=== PATIENT | female | born 1995 | race Caucasian/White ===

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

== ENCOUNTER 2017-12-01 15:57 | Emergency (ER) | payer MEDICAID ==
[~2017-12-01] VITALS: Ht 157.5 cm; Wt 54.4 kg
[~2017-12-01 15:57] MED LIST: CITA10TA7 PO; CLON0.5T PO; FAMO-119 PO; IRON18TA PO; NITR-65 PO; ONDA4TAB8 PO
[2017-12-01] MEDS ORDERED: ONDANSETRON 4 MG (ZOFRAN) ORAL DISSOLVE TAB SL STA (16:26)
[2017-12-01 16:31] LABS: BILIRUBIN,URINE NEGATIVE (NEGATIVE); CLARITY,URINE CLEAR; COLOR,URINE AMBER; GLUCOSE, URINE (UA) NEGATIVE (NEGATIVE); KETONES,URINE 4+ (NEGATIVE); LEUKOCYTE ESTERASE ,URINE 1+ (NEGATIVE); NITRITE,URINE NEGATIVE (NEGATIVE); PH,URINE 5 (5-9); PROTEIN,URINE NEGATIVE (NEGATIVE); UROBILINOGEN,URINE NORMAL (NORMAL)
[2017-12-01] MEDS ORDERED: ACETAMINOPHEN 325 MG TABLET/CAPLET (TYLENOL) PO STA (16:47)
[2017-12-01 17:01] LABS: BACTERIA,URINE TRACE /HPF; WBC,URINE RARE /HPF
[2017-12-01] MEDS ORDERED: NS IV 1000 ML 1,000 ML IV ONE (17:22)
--- NOTE | 2017-12-01 17:27 | ED GI ---
General Chief Complaint: Abdominal/GI Problems Stated Complaint: VOMITING Nursing Triage Note: AMB TO ROOM C/O LOW BACK PAIN AND WITH HEADACE AND NOT NOT FEELING WELL. VOMITED X1 AT 9A TODAY DRINKING SPRIT ON ADMIT. Sepsis Screen: No Definite Risk History of Present Illness Date Seen by Provider: Dec 01, 2017 Time Seen by Provider: 16:00 Initial Comments 22-year-old female presents for vomiting and nausea. Patient denies diarrhea. She vomited approximately 0900 this morning. She reports that she's been having small sips of water and Sprite, no solid food intake. She has generalized abdominal pain. Timing/Duration: 4-6 Hours Severity/Quality: Mild Location: Generalized Abdomen Radiation: Flank (bilaterally) Activities at Onset: None Modifying Factors: Improves With Lying down, Improves With Resting Associated Symptoms: Back Pain, Nausea/Vomiting, Weakness Allergies and Home Medications Allergies Coded Allergies: No Known Drug Allergies (Unverified , 12/14/16) Home Medications Nitrofurantoin Macrocrystal 100 Mg Capsule, 100 MG PO Q6H, #20 Ref 0 Prescribed by: SHIKHA JONAS on 12/01/171813 Ondansetron 8 Mg Tab.rapdis, 8 MG PO Q6H, #4 Ref 0 Prescribed by: SHIKHA JONAS on 12/01/174 Review of Systems Constitutional: no symptoms reported, see HPI Gastrointestinal: See HPI, Abdominal Pain, Denies Constipated, Denies Diarrhea , Nausea, Poor Appetite, Vomiting Past Psdpugm-Lnusbm-Mmgbhs Hx Patient Social History Alcohol Use: Denies Use Recreational Drug Use: No Smoking Status: Current Everyday Smoker Type Used: Cigarettes 2nd Hand Smoke Exposure: Yes Recent Foreign Travel: No Contact w/Someone Who Travel: No Recent Infectious Disease Expo: No Recent Hopitalizations: No Immunizations Up To Date Tetanus Booster (TDap): Unknown Seasonal Allergies Seasonal Allergies: No Surgeries History of Surgeries: Yes (D&C) Respiratory History of Respiratory Disorde: No Cardiovascular History of Cardiac Disorders: No Neurological History of Neurological Disord: No Reproductive System 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 Gastrointestinal History of Gastrointestinal Di: No Musculoskeletal History of Musculoskeletal Dis: No Endocrine History of Endocrine Disorders: No Cancer History of Cancer: No Psychosocial History of Psychiatric Problem: Yes Behavioral Health Disorders: Anxiety, Depression Integumentary History of Skin or Integumenta: No Blood Transfusions History of Blood Disorders: Yes (ANEMIA) Reviewed Nursing Assessment Reviewed/Agree w Nursing PMH: Yes Physical Exam Vital Signs VS - Last 72 Hours, by Label 12/01/17 12/01/17 16:10 19:04 Temp 100.2 99.0 Pulse 118 86 Resp 18 18 B/P (MAP) 124/74 (91) Pulse Ox 97 98 O2 Delivery Room Air Capillary Refill : Less Than 3 Seconds General Appearance: WD/WN, no apparent distress HEENT: PERRL/EOMI, normal ENT inspection, TMs normal, pharynx normal, other ( oral mucosa pink and moist) Neck: non-tender, full range of motion, supple, normal inspection Respiratory: chest non-tender, lungs clear, normal breath sounds Cardiovascular: normal peripheral pulses, regular rate, rhythm Gastrointestinal: normal bowel sounds, No distended, No guarding, No rebound, tenderness (generalized, all 4 quadrants), No hepatomegaly Back: normal inspection, no vertebral tenderness, CVA tenderness (R), CVA tenderness (L) Neurologic/Psychiatric: no motor/sensory deficits, alert, normal mood/affect, oriented x 3 Skin: normal color, warm/dry Lymphatic: no adenopathy Progress/Results/Core Measures Results/Orders Lab Results Laboratory Tests Test 12/01/17 16:16 Range/Units Urine Color SKYLER H Urine Clarity CLEAR Urine pH 5 5-9 Urine Specific [place] 1.020 1.016-1.022 Urine Protein NEGATIVE NEGATIVE Urine Glucose (UA) NEGATIVE NEGATIVE Urine Ketones 4+ H NEGATIVE Urine Nitrite NEGATIVE NEGATIVE Urine Bilirubin NEGATIVE NEGATIVE Urine Urobilinogen NORMAL NORMAL MG/DL Urine Leukocyte Esterase 1+ H NEGATIVE Urine RBC (Auto) 4+ H NEGATIVE Urine RBC 2-5 H /HPF Urine WBC RARE /HPF Urine Squamous Epithelial Cells 2-5 /HPF Urine Crystals NONE /LPF Urine Bacteria TRACE /HPF Urine Casts NONE /LPF Urine Mucus LARGE H /LPF Urine Culture Indicated NO Micro Results Microbiology 12/01/17 Influenza Types A,B Antigen (DIMITRI) - Final, Complete My Orders Orders - SHIKHA JONAS Ua Culture If Indicated (12/01/17 16:06) Urine Bedside (12/01/17 16:06) Ondansetron Oral Dissolve Tab (Zofran (12/01/17 16:26) Influenza A And B Antigens (1/24/18 16:26) Acetaminophen Tablet/Caplet (Tylenol T (12/01/17 16:47) Saline Lock/Iv-Start (12/01/17 17:22) Ns Iv 1000 Ml (Sodium Chloride 0.9%) (12/01/17 17:22) Medications Given in ED Current Medications Medications Dose Ordered Sig/Ishmael Route Start Time Stop Time Status Last Admin Dose Admin Sodium Chloride 1,000 ml @ 0 mls/hr Q0M ONCE IV 12/01/17 17:22 12/01/17 17:23 DC 12/01/17 17:48 1,000 MLS/HR Vital Signs/I&O Vital Sign - Last 12Hours 12/01/17 12/01/17 16:10 19:04 Temp 100.2 99.0 Pulse 118 86 Resp 18 18 B/P (MAP) 124/74 (91) Pulse Ox 97 98 O2 Delivery Room Air Blood Pressure Mean: 91 Point of Care Testing Urine -Bedside: Negative Progress Note : Time: 16:00 Progress Note Initial evaluation completed, will check UA and influenza screen. Zofran 4 mg orally for nausea. 1640 patient reports nausea is improved, will give Tylenol 650 mg by mouth for headache. Awaiting lab results. 1700 patient resting with no complaints, taking sips of Pedialyte. UA shows 4+ ketones, recommended 1 L normal saline IV. 1900 discharge planning reviewed, return precautions and instructions. All questions answered. Departure Impression Impression: Primary Impression: Pain in the abdomen Qualified Codes: R10.84 - Generalized abdominal pain Additional Impression: Nausea and vomiting Qualified Codes: R11.2 - Nausea with vomiting, unspecified Disposition: HOME, SELF-CARE Condition: Improved Departure-Patient Inst. Decision time for Depature: 18:30 Referrals: NO,LOCAL PHYSICIAN (PCP) Primary Care Physician Patient Instructions: Nausea and Vomiting, Adult (DC), Urinary Tract Infection , Adult (DC) Add. Discharge Instructions: Clear liquid diet for the next 4-6 hours. If tolerating that may eat bland food for the next 6-8 hours. Progress activity as tolerated. Use Zofran for nausea and vomiting as needed. Follow-up with your primary care physician if symptoms are not improving. Return to emergency department for increased abdominal pain, nausea and vomiting not relieved by the Zofran, temperature greater than 101 not relieved by Tylenol or ibuprofen, or new problems. All discharge instructions reviewed with patient and/or family. Voiced understanding. Scripts Nitrofurantoin Macrocrystal (Nitrofurantoin) 100 Mg Capsule 100 MG PO Q6H, #20 CAP 0 Refills Prov: SHIKHA JONAS 12/01/17 Ondansetron (Zofran Odt) 8 Mg Tab.rapdis 8 MG PO Q6H, #4 TAB 0 Refills Prov: SHIKHA JONAS 12/01/17 SHIKHA JONAS Dec 01, 2017 17:27
[2017-12-01] MEDS ORDERED: ONDA8TAB9 PO (18:14)
[2017-12-01] MEDS ORDERED: NITR100C PO (18:14)
[2017-12-01 19:04] VITALS: BP 116/56
== END 2017-12-01 19:04 | disposition home or self-care (01) ==
LOC: EDUNIT# 15:57 → ER 16:00
DX: R10.84 Generalized abdominal pain (principal); R11.2 Nausea with vomiting, unspecified; F41.9 Anxiety disorder, unspecified; F32.9 Major depressive disorder, single episode, unspecified; F17.210 Nicotine dependence, cigarettes, uncomplicated; Z97.5 Presence of (intrauterine) contraceptive device
CPT/HCPCS: 81000; 84703; 87804; 96360

== ENCOUNTER 2019-02-22 08:29 | Emergency (ER) | payer MEDICAID ==
[~2019-02-22] VITALS: Ht 157.5 cm; Wt 56.7 kg
[~2019-02-22 08:29] MED LIST changes: +NITR100C PO; +ONDA8TAB9 PO
--- NOTE | 2019-02-22 08:49 | ED GU-Female ---
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 COMPLAINS OF ABD PAIN AND LOWER ABD CRAMPING FOR TWO DAYS. STATES SHE HAS HAD A POSITIVE HOME PREG TEST BUT HAS NOT SEEN A DR YET. Nursing Sepsis Screen: No Definite Risk Source: patient, family Exam Limitations: no limitations History of Present Illness Date Seen by Provider: Feb 22, 2019 Time Seen by Provider: 08:50 23 y/o with 2 week history of intermittent nausea and vomiting and 2 day history of abdominal cramping presents for evaluation after + home test. Last she had "bad morning sickness" and had to be hospitalized. LMP 01/09/19- 6W 2/7D. Other pregnancies with without complication, no other complications during course (aside from afore mentioned morning sickness). She has not had any bleeding or abnormal discharge. No hematuria or fevers. No history of STI or ectopic . Had an IUD until about 6 months ago, when it was removed. Allergies and Home Medications Allergies Coded Allergies: No Known Drug Allergies (Unverified , 12/14/16) Home Medications Ondansetron HCl 4 Mg Tab, 4 MG PO Q6H PRN for NAUSEA/VOMITING-1ST LINE Prescribed by: DENISE PHOENIX on 02/22/19 1041 Patient Home Medication List Home Medication List Reviewed: Yes Review of Systems Review of Systems Constitutional: chills; No fever; weakness EENTM: No blurred vision, No double vision Respiratory: No cough, No short of breath Cardiovascular: No chest pain, No edema, No palpitations Gastrointestinal: see HPI; No diarrhea; nausea, vomiting Genitourinary: see HPI; denies burning, denies discharge, denies dysuria, denies flank pain, denies hematuria, denies pain Musculoskeletal: No back pain, No joint pain, No muscle pain Skin: No lesions, No rash Psychiatric/Neurological: Denies Anxiety, Denies Numbness Past Kolfqsu-Eulwyd-Kgblvr Hx Past Med/Social Hx: Reviewed Nursing Past Med/Soc Hx Patient Social History Type Used: Cigarettes 2nd Hand Smoke Exposure: Yes Recent Foreign Travel: No Contact w/Someone Who Travel: No Recent Infectious Disease Expo: No Recent Hopitalizations: No Immunizations Up To Date Tetanus Booster (TDap): Unknown Seasonal Allergies Seasonal Allergies: No Past Medical History Surgeries: Yes (D&C) Respiratory: No Cardiac: No Neurological: No 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 oz. 56.032915bk; 23.77 BMI Method:Stated General Appearance: WD/WN, no apparent distress HEENT: PERRL/EOMI, normal ENT inspection, TMs normal, pharynx normal, other ( moist MM) Neck: non-tender, supple, normal inspection Cardiovascular: regular rate, rhythm, no edema, no gallop, no JVD, no murmur Respiratory: chest non-tender, lungs clear, normal breath sounds, no respiratory distress, no accessory muscle use Gastrointestinal: normal bowel sounds, non tender, soft, no organomegaly, no pulsatile mass Back: normal inspection, no CVA tenderness, no vertebral tenderness Extremities: normal range of motion, non-tender, normal inspection, no pedal edema, no calf tenderness Neurologic/Psychiatric: no motor/sensory deficits, alert, normal mood/affect, oriented x 3 Skin: normal color, warm/dry Progress/Results/Core Measures Suspected Sepsis Recent Fever Within 48 Hours: No Infection Criteria Present: None New/Unexplained Altered Menta: No Sepsis Screen: No Definite Risk SIRS Temperature:96.9 Pulse: 76 Respiratory Rate: 16 Laboratory Tests 02/22/19 09:10: White Blood Count 8.2 Blood Pressure 122 /78 Mean: 93 Laboratory Tests 02/22/19 09:10: Creatinine 0.53L, Platelet Count 217, Total Bilirubin 0.5 Results/Orders Lab Results Laboratory Tests Test 02/22/19 09:10 02/22/19 09:40 Range/Units White Blood Count 8.2 4.3-11.0 10^3/uL Red Blood Count 3.99 L 4.35-5.85 10^6/uL Hemoglobin 13.2 11.5-16.0 G/DL Hematocrit 37 35-52 % Mean Corpuscular Volume 93 80-99 FL Mean Corpuscular Hemoglobin 33 25-34 PG Mean Corpuscular Hemoglobin Concent 36 32-36 G/DL Red Cell Distribution Width 11.9 10.0-14.5 % Platelet Count 217 130-400 10^3/uL Mean Platelet Volume 9.6 7.4-10.4 FL Neutrophils (%) (Auto) 65 42-75 % Lymphocytes (%) (Auto) 27 12-44 % Monocytes (%) (Auto) 6 0-12 % Eosinophils (%) (Auto) 2 0-10 % Basophils (%) (Auto) 0 0-10 % Neutrophils # (Auto) 5.3 1.8-7.8 X 10^3 Lymphocytes # (Auto) 2.2 1.0-4.0 X 10^3 Monocytes # (Auto) 0.5 0.0-1.0 X 10^3 Eosinophils # (Auto) 0.1 0.0-0.3 10^3/uL Basophils # (Auto) 0.0 0.0-0.1 10^3/uL Sodium Level 137 135-145 MMOL/L Potassium Level 3.8 3.6-5.0 MMOL/L Chloride Level 103 98-107 MMOL/L Carbon Dioxide Level 22 21-32 MMOL/L Anion Gap 12 5-14 MMOL/L Blood Urea Nitrogen 8 7-18 MG/DL Creatinine 0.53 L 0.60-1.30 MG/DL Estimat Glomerular Filtration Rate > 60 BUN/Creatinine Ratio 15 Glucose Level 107 H 70-105 MG/DL Calcium Level 9.6 8.5-10.1 MG/DL Corrected Calcium 8.5-10.1 MG/DL Total Bilirubin 0.5 0.1-1.0 MG/DL Aspartate Amino Transf (AST/SGOT) 15 5-34 U/L Alanine Aminotransferase (ALT/SGPT) 10 0-55 U/L Alkaline Phosphatase 51 40-136 U/L Total Protein 7.8 6.4-8.2 GM/DL Albumin 4.8 H 3.2-4.5 GM/DL Lipase 13 8-78 U/L Human Chorionic Gonadotropin, Quant [id number] H <5 MIU/ML Urine Color YELLOW Urine Clarity CLEAR Urine pH 6.5 5-9 Urine Specific [place] 1.015 L 1.016-1.022 Urine Protein NEGATIVE NEGATIVE Urine Glucose (UA) 3+ H NEGATIVE Urine Ketones NEGATIVE NEGATIVE Urine Nitrite NEGATIVE NEGATIVE Urine Bilirubin NEGATIVE NEGATIVE Urine Urobilinogen 0.2 NORMAL MG/DL Urine Leukocyte Esterase NEGATIVE NEGATIVE Urine RBC (Auto) TRACE-I NEGATIVE Urine RBC 0-2 /HPF Urine WBC RARE /HPF Urine Squamous Epithelial Cells 2-5 /HPF Urine Crystals NONE /LPF Urine Bacteria NEGATIVE /HPF Urine Casts NONE /LPF Urine Mucus MODERATE H /LPF Urine Other /HPF Urine Culture Indicated NO My Orders Orders - DENISE PHOENIX MD Comprehensive Metabolic Panel (02/22/19 08:57) Lipase (02/22/19 08:57) Ua Culture If Indicated (02/22/19 08:57) Ed Iv/Invasive Line Start (02/22/19 08:57) Cbc With Automated Diff (02/22/19 08:57) Hcg,Quantitative (02/22/19 08:57) Ondansetron Injection (Zofran Injectio (02/22/19 09:00) D5 Ns 1000 Ml Iv Solution (Dextrose 5%/0 (02/22/19 09:00) Medications Given in ED Current Medications Medications Dose Ordered Sig/Ishmael Route Start Time Stop Time Status Last Admin Dose Admin Ondansetron HCl 4 mg ONCE ONCE IVP 02/22/19 09:00 02/22/19 09:01 DC 02/22/19 09:10 4 MG Vital Signs/I&O 02/22/19 08:35 Temp 96.9 Pulse 76 Resp 16 B/P (MAP) 122/78 (93) Pulse Ox 97 O2 Delivery Room Air Capillary Refill : Less Than 3 Seconds Blood Pressure Mean: 93 Progress Note #1: Time: 10:10 Progress Note nausea resolved. abdominal cramping resolved. Feeling better, will try PO challenge. Progress Note #2: Time: 10:39 Progress Note tolerated PO challenge. Feeling better and would like to go home. Departure Impression Primary Impression: Hyperemesis arising during Disposition: 01 HOME, SELF-CARE Condition: Improved Departure-Patient Inst. Decision time for Depature: 10:40 Referrals: SELFMARYJO MD (PCP/Family) Primary Care Physician Patient Instructions: Nausea and Vomiting of (DC) Scripts Ondansetron HCl (Zofran) 4 Mg Tab 4 MG PO Q6H PRN for NAUSEA/VOMITING-1ST LINE, #20 TAB 0 Refills Prov: DENISE PHOENIX MD 02/22/19 DENISE PHOENIX MD Feb 22, 2019 08:49
[2019-02-22] MEDS ORDERED: D5 NS 1000 ML IV SOLUTION 1,000 ML IV SCH (09:00)
[2019-02-22] MEDS ORDERED: ONDANSETRON 4 MG/2 ML (SDV) Z0FRAN IVP ONE (09:00)
[2019-02-22 09:19] LABS: HEMATOCRIT 37 % (35-52); HEMOGLOBIN 13.2 G/DL (11.5-16.0); MEAN CORPUSCULAR HEMOGLOBIN 33 PG (25-34); MEAN CORPUSCULAR HGB CONC 36 G/DL (32-36); MEAN CORPUSCULAR VOLUME 93 FL (80-99); WHITE BLOOD COUNT 8.2 10^3/uL (4.3-11.0)
[2019-02-22 09:20] LABS: BASOPHILS % (AUTO) 0 % (0-10); EOSINOPHILS # (AUTO) 0.1 10^3/uL (0.0-0.3); EOSINOPHILS % (AUTO) 2 % (0-10); LYMPHOCYTES # (AUTO) 2.2 X 10^3 (1.0-4.0); LYMPHOCYTES % (AUTO) 27 % (12-44); MEAN PLATELET VOLUME 9.6 FL (7.4-10.4); MONOCYTES # (AUTO) 0.5 X 10^3 (0.0-1.0); MONOCYTES % (AUTO) 6 % (0-12); NEUTROPHILS # (AUTO) 5.3 X 10^3 (1.8-7.8); NEUTROPHILS % (AUTO) 65 % (42-75); PLATELET COUNT 217 10^3/uL (130-400); RED CELL DISTRIBUTION WIDTH 11.9 % (10.0-14.5)
--- NOTE | 2019-02-22 09:40 | NUR ---
PT STATES SHE IS FEELING BETTER AFTER THE MEDICATIONS. UP AMBULATED TO BATHROOM WITHOUT DIFFICULTY.
--- NOTE | 2019-02-22 10:07 | NUR ---
IN ROOM TO SEE PT.
--- NOTE | 2019-02-22 10:10 | NUR ---
JOHN TWIST AND CRACKERS GIVEN PER DR REQUEST. PT WANTING IV OUT ET INFORMED HER I WOULD LIKE TO LEAVE IT IN UNTIL WE KNOW IF SHE IS ABLE TO KEEP THINGS DOWN FIRST. PT VERBALIZED UNDERSTANDING.
[2019-02-22 10:14] LABS: CLARITY,URINE CLEAR; COLOR,URINE YELLOW
[2019-02-22 10:15] LABS: BILIRUBIN,URINE NEGATIVE (NEGATIVE); GLUCOSE, URINE (UA) 3+ (NEGATIVE); KETONES,URINE NEGATIVE (NEGATIVE); LEUKOCYTE ESTERASE ,URINE NEGATIVE (NEGATIVE); NITRITE,URINE NEGATIVE (NEGATIVE); PH,URINE 6.5 (5-9); PROTEIN,URINE NEGATIVE (NEGATIVE); UROBILINOGEN,URINE 0.2 MG/DL (NORMAL)
[2019-02-22 10:16] LABS: BACTERIA,URINE NEGATIVE /HPF; RBC,URINE 0-2 /HPF; WBC,URINE RARE /HPF
[2019-02-22 10:18] LABS: CHLORIDE 103 MMOL/L (98-107); POTASSIUM 3.8 MMOL/L (3.6-5.0); SODIUM 137 MMOL/L (135-145)
[2019-02-22 10:19] LABS: ALANINE AMINOTRANSFERASE 10 U/L (0-55); ALBUMIN 4.8 GM/DL (3.2-4.5); ALKALINE PHOSPHATASE 51 U/L (40-136); BILIRUBIN,TOTAL 0.5 MG/DL (0.1-1.0); BUN/CREATININE RATIO 15; CALCIUM 9.6 MG/DL (8.5-10.1); CREATININE SERUM 0.53 MG/DL (0.60-1.30); GFR ESTIMATED > 60; GLUCOSE 107 MG/DL (70-105); LIPASE 13 U/L (8-78); TOTAL PROTEIN 7.8 GM/DL (6.4-8.2)
[2019-02-22 10:20] LABS: CARBON DIOXIDE 22 MMOL/L (21-32)
--- NOTE | 2019-02-22 10:31 | NUR ---
DR KAMARA PT HAS BEEN ABLE TO EAT AND DRINK WITHOUT ANY DIFFICULTY.
[2019-02-22] MEDS ORDERED: ONDN4T PO (10:41)
[2019-02-22 11:08] VITALS: BP 126/82
== END 2019-02-22 11:08 | disposition home or self-care (01) ==
LOC: EDUNIT# 08:29 → ER FS 08:31
DX: O21.9 Vomiting of pregnancy, unspecified (principal); F41.9 Anxiety disorder, unspecified; F32.9 Major depressive disorder, single episode, unspecified; O99.011 Anemia complicating pregnancy, first trimester; D64.9 Anemia, unspecified; Z3A.01 Less than 8 weeks gestation of pregnancy; Z97.5 Presence of (intrauterine) contraceptive device; Z77.22 Contact with and (suspected) exposure to environmental tobacco smoke (acute) (chronic); Z98.890 Other specified postprocedural states
CPT/HCPCS: 36415; 80053; 81000; 83690; 84702; 85025

== ENCOUNTER 2019-02-27 00:03 | Emergency (ER) | payer MEDICAID ==
[~2019-02-27] VITALS: Ht 157.5 cm; Wt 56.7 kg
[~2019-02-27 00:03] MED LIST changes: +ONDN4T PO
--- OUTSIDE RECORDS SUMMARY | 2019-02-27 00:10 | XMS REPORT | Continuity of Care Document ---
Author Organization Unknown Address Unknown Allergies There is no data. Medications There is no data. Problems There is no data. Procedures There is no data. Results Test Result Range GC/CHLAMYDIA (SWAB OR URINE)-RAPID - 02/09/19 14:04 CHLAMYDIA TRACHOMATIS RNA, TMA NOT DETECTED NOT DETECTED NEISSERIA GONORRHOEAE RNA, TMA NOT DETECTED NOT DETECTED COMMENT NRG Encounters ACCT No. Visit Date/Time Discharge Status Pt. Type Provider Facility Loc./Unit Complaint [id number] 02/09/2019 13:00:00 02/09/2019 23:59:59 CLS Outpatient SELF, MARYJO COATESNick [facility] [id number] 02/09/2019 13:00:00 Document Registration
--- NOTE | 2019-02-27 00:29 | ED GI ---
General Stated Complaint: NAUSEA/VOMITTING History of Present Illness Date Seen by Provider: Feb 27, 2019 Time Seen by Provider: 00:20 Initial Comments 23-year-old female possibly 8 weeks EGA presents with repeated vomiting. Has been seen here and then a hospital in [place]. No other associated symptoms other than her . She has had some epigastric pain from her vomiting. She states that she had similar symptoms with her previous . No melena or hematochezia reported. Allergies and Home Medications Allergies Coded Allergies: No Known Drug Allergies (Unverified , 12/14/16) Home Medications Ondansetron HCl 4 Mg Tab, 4 MG PO Q6H PRN for NAUSEA/VOMITING-1ST LINE Prescribed by: DENISE PHOENIX on 02/22/19 1041 Patient Home Medication List Home Medication List Reviewed: Yes Review of Systems Review of Systems Constitutional: malaise, weakness EENTM: No Symptoms Reported Respiratory: No Symptoms Reported Cardiovascular: No Symptoms Reported Gastrointestinal: See HPI Genitourinary: No Symptoms Reported Musculoskeletal: no symptoms reported Skin: no symptoms reported Psychiatric/Neurological: No Symptoms Reported Endocrine: No Symptoms Reported Hematologic/Lymphatic: No Symptoms Reported Past Nqdffzs-Mxpcnd-Gpfcck Hx Past Med/Social Hx: Reviewed Nursing Past Med/Soc Hx Patient Social History Type Used: Cigarettes 2nd Hand Smoke Exposure: Yes Recent Foreign Travel: No Contact w/Someone Who Travel: No Recent Hopitalizations: No Immunizations Up To Date Tetanus Booster (TDap): Unknown Seasonal Allergies Seasonal Allergies: No Past Medical History Surgeries: Yes (D&C) Respiratory: No Cardiac: No Neurological: No 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 oz. 56.701118gr; 23.77 BMI Method:Stated General Appearance: WD/WN, no apparent distress HEENT: PERRL/EOMI, normal ENT inspection, TMs normal, pharynx normal; No scleral icterus (R), No scleral icterus (L) Neck: non-tender, full range of motion, supple, normal inspection Respiratory: chest non-tender, lungs clear, normal breath sounds, no respiratory distress, no accessory muscle use Cardiovascular: normal peripheral pulses, regular rate, rhythm, no edema, no gallop, no JVD, no murmur Gastrointestinal: normal bowel sounds, soft, no organomegaly, no pulsatile mass , tenderness (and epigastrium) Extremities: normal range of motion, non-tender, normal inspection, no pedal edema, no calf tenderness, normal capillary refill, pelvis stable Back: normal inspection, no CVA tenderness, no vertebral tenderness Neurologic/Psychiatric: no motor/sensory deficits, alert, oriented x 3 Skin: normal color, warm/dry Lymphatic: no adenopathy Progress/Results/Core Measures Results/Orders Lab Results Laboratory Tests Test 02/27/19 00:17 02/27/19 00:39 Range/Units Urine Color YELLOW Urine Clarity CLEAR Urine pH 6.5 5-9 Urine Specific [place] >1.030 1.016-1.022 Urine Protein 2+ H NEGATIVE Urine Glucose (UA) NEGATIVE NEGATIVE Urine Ketones 3+ H NEGATIVE Urine Nitrite NEGATIVE NEGATIVE Urine Bilirubin NEGATIVE NEGATIVE Urine Urobilinogen 0.2 NORMAL MG/DL Urine Leukocyte Esterase NEGATIVE NEGATIVE Urine RBC (Auto) TRACE H NEGATIVE Urine RBC 0-2 /HPF Urine WBC RARE /HPF Urine Squamous Epithelial Cells 2-5 /HPF Urine Crystals NONE /LPF Urine Bacteria NONE /HPF Urine Casts NONE /LPF Urine Mucus LARGE H /LPF Urine Culture Indicated NO White Blood Count 13.5 H 4.3-11.0 10^3/uL Red Blood Count 3.62 L 4.35-5.85 10^6/uL Hemoglobin 12.0 11.5-16.0 G/DL Hematocrit 34 L 35-52 % Mean Corpuscular Volume 93 80-99 FL Mean Corpuscular Hemoglobin 33 25-34 PG Mean Corpuscular Hemoglobin Concent 36 32-36 G/DL Red Cell Distribution Width 11.9 10.0-14.5 % Platelet Count 236 130-400 10^3/uL Mean Platelet Volume 9.7 7.4-10.4 FL Neutrophils (%) (Auto) 88 H 42-75 % Lymphocytes (%) (Auto) 7 L 12-44 % Monocytes (%) (Auto) 4 0-12 % Eosinophils (%) (Auto) 0 0-10 % Basophils (%) (Auto) 0 0-10 % Neutrophils # (Auto) 11.9 H 1.8-7.8 X 10^3 Lymphocytes # (Auto) 1.0 1.0-4.0 X 10^3 Monocytes # (Auto) 0.6 0.0-1.0 X 10^3 Eosinophils # (Auto) 0.0 0.0-0.3 10^3/uL Basophils # (Auto) 0.0 0.0-0.1 10^3/uL Neutrophils % (Manual) 83 % Lymphocytes % (Manual) 8 % Monocytes % (Manual) 3 % Eosinophils % (Manual) 0 % Basophils % (Manual) 0 % Band Neutrophils 6 % Blood Morphology Comment NORMAL Sodium Level 137 135-145 MMOL/L Potassium Level 3.3 L 3.6-5.0 MMOL/L Chloride Level 99 98-107 MMOL/L Carbon Dioxide Level 19 L 21-32 MMOL/L Anion Gap 19 H 5-14 MMOL/L Blood Urea Nitrogen 12 7-18 MG/DL Creatinine 0.47 L 0.60-1.30 MG/DL Estimat Glomerular Filtration Rate > 60 BUN/Creatinine Ratio 26 Glucose Level 122 H 70-105 MG/DL Calcium Level 9.6 8.5-10.1 MG/DL Corrected Calcium 8.5-10.1 MG/DL Total Bilirubin 0.8 0.1-1.0 MG/DL Aspartate Amino Transf (AST/SGOT) 35 H 5-34 U/L Alanine Aminotransferase (ALT/SGPT) 15 0-55 U/L Alkaline Phosphatase 48 40-136 U/L Total Protein 7.8 6.4-8.2 GM/DL Albumin 4.9 H 3.2-4.5 GM/DL Lipase 60 8-78 U/L My Orders Orders - ALY CERVANTES MD Ondansetron Injection (Zofran Injectio (02/27/19 00:30) Ed Iv/Invasive Line Start (02/27/19 00:23) Ed Iv/Invasive Line Start (02/27/19 00:23) Ns Iv 1000 Ml (Sodium Chloride 0.9%) (02/27/19 00:23) Cbc With Automated Diff (02/27/19 00:23) Comprehensive Metabolic Panel (02/27/19 00:23) Lipase (02/27/19 00:23) Ua Culture If Indicated (02/27/19 00:29) Manual Differential (02/27/19 00:39) Famotidine Injection (Pepcid Injection) (02/27/19 01:30) Famotidine Injection (Pepcid Injection) (02/27/19 01:21) Promethazine Injection (Phenergan Injec (02/27/19 01:56) Promethazine Injection (Phenergan Injec (02/27/19 01:57) Medications Given in ED Current Medications Medications Dose Ordered Sig/Ishmael Route Start Time Stop Time Status Last Admin Dose Admin Famotidine 20 mg ONCE ONCE IVP 02/27/19 01:30 02/27/19 01:31 DC 02/27/19 01:28 20 MG Ondansetron HCl 4 mg ONCE ONCE IVP 02/27/19 00:30 02/27/19 00:31 DC 02/27/19 00:43 4 MG Vital Signs/I&O 02/27/19 00:16 Temp 98.0 Pulse 68 Resp 16 B/P (MAP) 126/71 (89) Pulse Ox 99 O2 Delivery Room Air Progress Progress Note : Time: 00:28 Progress Note Past patient has had hyperemesis, will treat with IV fluids and Zofran. She understands and accepts the risk of medication and early . 0127 No further vomiting. Keeping ice chips down. Will give second liter of NS. Anticipate discharge with continued use of Zofran. She requested stronger medications. We discussed the potential risks of stronger medications and the uncertain risks of any medication at all. She agrees with plan. 0157 Has started emesis again. We discussed options of treatment. She states that when visiting in [place] that she had improvement with IV Phenergan. She accepts the risks of this medication and wishes to receive it. 0225 Feeling much better and would like to go home. She has RX for Zofran and Phenergan. To continue those and to ensure hydration. To return here or to OB if symptoms reoccur. Departure Impression Primary Impression: Hyperemesis Additional Impressions: Dehydration during 8 weeks gestation of Disposition: HOME, SELF-CARE Condition: Improved Departure-Patient Inst. Decision time for Depature: 02:26 Referrals: MARYJO WATTS MD (PCP/Family) Primary Care Physician 1-2 days, sooner as needed Patient Instructions: Dehydration, Adult (DC), Nausea and Vomiting of (DC) ALY CERVANTES MD Feb 27, 2019 00:29
[2019-02-27] MEDS ORDERED: ONDANSETRON 4 MG/2 ML (SDV) Z0FRAN IVP ONE (00:30)
[2019-02-27 00:37] LABS: BILIRUBIN,URINE NEGATIVE (NEGATIVE); CLARITY,URINE CLEAR; COLOR,URINE YELLOW; GLUCOSE, URINE (UA) NEGATIVE (NEGATIVE); KETONES,URINE 3+ (NEGATIVE); NITRITE,URINE NEGATIVE (NEGATIVE); PH,URINE 6.5 (5-9); PROTEIN,URINE 2+ (NEGATIVE)
[2019-02-27 00:38] LABS: LEUKOCYTE ESTERASE ,URINE NEGATIVE (NEGATIVE); RBC,URINE 0-2 /HPF; UROBILINOGEN,URINE 0.2 MG/DL (NORMAL); WBC,URINE RARE /HPF
[2019-02-27] MEDS: NS IV 1000 ML 1,000 ML IV SCH ×2 (00:44→01:29)
[2019-02-27 00:52] LABS: WHITE BLOOD COUNT 13.5 10^3/uL (4.3-11.0)
[2019-02-27 00:53] LABS: BASOPHILS % (AUTO) 0 % (0-10); EOSINOPHILS % (AUTO) 0 % (0-10); HEMATOCRIT 34 % (35-52); LYMPHOCYTES % (AUTO) 7 % (12-44); MEAN CORPUSCULAR HEMOGLOBIN 33 PG (25-34); MEAN CORPUSCULAR HGB CONC 36 G/DL (32-36); MEAN CORPUSCULAR VOLUME 93 FL (80-99); MEAN PLATELET VOLUME 9.7 FL (7.4-10.4); MONOCYTES # (AUTO) 0.6 X 10^3 (0.0-1.0); MONOCYTES % (AUTO) 4 % (0-12); NEUTROPHILS # (AUTO) 11.9 X 10^3 (1.8-7.8); NEUTROPHILS % (AUTO) 88 % (42-75); PLATELET COUNT 236 10^3/uL (130-400); RED CELL DISTRIBUTION WIDTH 11.9 % (10.0-14.5)
[2019-02-27 01:09] LABS: BAND NEUTROPHILS 6 %; BASOPHILS % (MANUAL) 0 %; EOSINOPHILS % (MANUAL) 0 %; LYMPHOCYTES % (MANUAL) 8 %; MONOCYTES % (MANUAL) 3 %; NEUTROPHILS % (MANUAL) 83 %; RBC MORPH NORMAL
[2019-02-27 01:10] LABS: POTASSIUM 3.3 MMOL/L (3.6-5.0); SODIUM 137 MMOL/L (135-145)
[2019-02-27 01:11] LABS: ALANINE AMINOTRANSFERASE 15 U/L (0-55); ALBUMIN 4.9 GM/DL (3.2-4.5); ALKALINE PHOSPHATASE 48 U/L (40-136); BILIRUBIN,TOTAL 0.8 MG/DL (0.1-1.0); BUN/CREATININE RATIO 26; CALCIUM 9.6 MG/DL (8.5-10.1); CARBON DIOXIDE 19 MMOL/L (21-32); CHLORIDE 99 MMOL/L (98-107); CREATININE SERUM 0.47 MG/DL (0.60-1.30); GFR ESTIMATED > 60; GLUCOSE 122 MG/DL (70-105); LIPASE 60 U/L (8-78); TOTAL PROTEIN 7.8 GM/DL (6.4-8.2)
[2019-02-27] MEDS ORDERED: FAMOTIDINE 20MG/2ML IV (PEPCID) ONE (01:21)
[2019-02-27] MEDS ORDERED: FAMOTIDINE 20MG/2ML IV (PEPCID) IVP ONE (01:30)
[2019-02-27] MEDS ORDERED: PROMETHAZINE INJ 25 MG/ML (PHENERGAN) AMP IVP STA (01:56)
[2019-02-27] MEDS ORDERED: PROMETHAZINE INJ 25 MG/ML (PHENERGAN) AMP ONE (01:57)
[2019-02-27 02:52] VITALS: BP 127/69
[2019-02-28] MEDS ORDERED: PROM25TA14 PO (17:52)
[2019-02-28] MEDS ORDERED: RANI150T46 PO (17:52)
[2019-02-28] MEDS ORDERED: PROM25SU43 RC (21:52)
[2019-02-28] MEDS ORDERED: SUCR1ORA5 PO (21:52)
[2019-02-28] MEDS ORDERED: NITR-65 PO (22:00)
[2019-03-03] MEDS ORDERED: PYRI50TA11 PO (12:25)
[2019-03-03] MEDS ORDERED: SCOP1PAT17 TD (12:25)
[2019-03-03] MEDS ORDERED: MIRT-47 PO (12:25)
[2019-03-03] MEDS ORDERED: DOXY1TAB6 PO (12:25)
== END 2019-02-27 02:40 | disposition home or self-care (01) ==
LOC: EDUNIT# 00:03 → ER FS 00:06
DX: O21.9 Vomiting of pregnancy, unspecified (principal); O99.281 Endocrine, nutritional and metabolic diseases complicating pregnancy, first trimester; E86.0 Dehydration; O99.341 Other mental disorders complicating pregnancy, first trimester; F41.9 Anxiety disorder, unspecified; F32.9 Major depressive disorder, single episode, unspecified; O99.011 Anemia complicating pregnancy, first trimester; D64.9 Anemia, unspecified; Z3A.08 8 weeks gestation of pregnancy; Z77.22 Contact with and (suspected) exposure to environmental tobacco smoke (acute) (chronic); Z98.890 Other specified postprocedural states; Z97.5 Presence of (intrauterine) contraceptive device
CPT/HCPCS: 36415; 80053; 81000; 83690; 85007; 85027

== ENCOUNTER 2019-02-28 17:25 | Emergency (ER) | payer MEDICAID ==
[~2019-02-28] VITALS: Ht 157.5 cm; Wt 59.0 kg
[2019-02-28] MEDS ORDERED: RANI150T46 PO (17:52)
[2019-02-28] MEDS ORDERED: PROM25TA14 PO (17:52)
[2019-02-28] MEDS ORDERED: LACTATED RINGERS 1,000 ML IV ONE ×2 (19:05→21:58)
[2019-02-28] MEDS ORDERED: FAMOTIDINE 20MG/2ML IV (PEPCID) IV STA (19:14)
[2019-02-28] MEDS ORDERED: PROMETHAZINE INJ 25 MG/ML (PHENERGAN) AMP IVP STA (19:14)
[2019-02-28 19:15] LABS: BILIRUBIN,URINE NEGATIVE (NEGATIVE); CLARITY,URINE VERY CLOUDY; COLOR,URINE YELLOW; GLUCOSE, URINE (UA) NEGATIVE (NEGATIVE); KETONES,URINE 4+ (NEGATIVE); LEUKOCYTE ESTERASE ,URINE 1+ (NEGATIVE); NITRITE,URINE NEGATIVE (NEGATIVE); PH,URINE 7 (5-9); PROTEIN,URINE 3+ (NEGATIVE); UROBILINOGEN,URINE 1 MG/DL (NORMAL)
[2019-02-28] MEDS ORDERED: ONDANSETRON 4 MG/2 ML (SDV) Z0FRAN IVP ONE (19:15)
[2019-02-28] MEDS ORDERED: diphenhydrAMINE 50 MG/ML INJ (BENADRYL) IVP ONE (19:15)
[2019-02-28 19:17] LABS: BASOPHILS % (AUTO) 0 % (0-10); EOSINOPHILS % (AUTO) 0 % (0-10); HEMATOCRIT 35 % (35-52); HEMOGLOBIN 12.4 G/DL (11.5-16.0); LYMPHOCYTES # (AUTO) 1.1 X 10^3 (1.0-4.0); LYMPHOCYTES % (AUTO) 12 % (12-44); MEAN CORPUSCULAR HEMOGLOBIN 33 PG (25-34); MEAN CORPUSCULAR HGB CONC 36 G/DL (32-36); MEAN CORPUSCULAR VOLUME 91 FL (80-99); MEAN PLATELET VOLUME 10.1 FL (7.4-10.4); MONOCYTES # (AUTO) 0.8 X 10^3 (0.0-1.0); MONOCYTES % (AUTO) 8 % (0-12); NEUTROPHILS # (AUTO) 7.7 X 10^3 (1.8-7.8); NEUTROPHILS % (AUTO) 80 % (42-75); PLATELET COUNT 244 10^3/uL (130-400); RED CELL DISTRIBUTION WIDTH 11.8 % (10.0-14.5); WHITE BLOOD COUNT 9.6 10^3/uL (4.3-11.0)
--- OUTSIDE RECORDS SUMMARY | 2019-02-28 19:29 | XMS REPORT | Continuity of Care Document ---
[...] Status Pt. Type Provider Facility Loc./Unit Complaint [id number] 02/09/2019 13:00:00 02/09/2019 23:59:59 CLS Outpatient SELF, MARYJO COATESNick [facility] [id number] 02/09/2019 13:00:00 Document Registration
[2019-02-28 19:31] LABS: AMORPHOUS SEDIMENT,UR MOD AMOR PHOSPHATE /LPF; BACTERIA,URINE FEW /HPF; WBC,URINE 0-2 /HPF
[2019-02-28 19:32] LABS: ALANINE AMINOTRANSFERASE 19 U/L (0-55); ALBUMIN 4.8 GM/DL (3.2-4.5); ALKALINE PHOSPHATASE 45 U/L (40-136); AMYLASE 41 U/L (25-125); BILIRUBIN,TOTAL 0.8 MG/DL (0.1-1.0); BUN/CREATININE RATIO 15; CALCIUM 9.9 MG/DL (8.5-10.1); CARBON DIOXIDE 20 MMOL/L (21-32); CHLORIDE 101 MMOL/L (98-107); CREATININE SERUM 0.59 MG/DL (0.60-1.30); GFR ESTIMATED > 60; GLUCOSE 78 MG/DL (70-105); LIPASE 13 U/L (8-78); MAGNESIUM 2.3 MG/DL (1.8-2.4); POTASSIUM 3.2 MMOL/L (3.6-5.0); SODIUM 136 MMOL/L (135-145); TOTAL PROTEIN 7.7 GM/DL (6.4-8.2)
--- NOTE | 2019-02-28 19:35 | ED GI ---
General Chief Complaint: Abdominal/GI Problems Stated Complaint: VOMITING Nursing Triage Note: PT PRESENTS TO ED WITH COMPLAINTS OF N/D AND UPPER ABDOMINAL/EPIGASTRIC PAIN THAT RADIATES TO HER BACK SINCE 02/24/19. PT STATES SHE WAS SEEN AT AN EMERGENCY ROOM IN [facility] ON 02/25 WHILE ON VACATION AND [facility] [place] [facility] 02/26. PT RECIEVED ANTI NAUSEA MEDICATION AND FLUIDS BUT REPORTS NO REAL IMPROVEMENT. PT HAS PRESCRIPTION ZOFRAN, PHENERGAN, AND ZANTAC BUT REPORTS RELIEF IS ONLY TEMPORARY. PT STATES SHE IS APROX 7 WEEKS PREG WITH LMP 01/12/19. PT HAS APPOINTMENT SCHEDULED WITH DR RUFFIN ON 03/10/19. Sepsis Screen: No Definite Risk Source of Information: Patient (CHANGES STORY, BELLIGERENT AND CURSING AND DEMANDING) History of Present Illness Date Seen by Provider: Feb 28, 2019 Time Seen by Provider: 19:05 Initial Comments PT ARRIVES VIA POV C/O BURNING IN EPIGASTRIC AREA, RADIATES THROUGH TO BACK FOR 3 DAYS ALSO C/O NAUSEA AND VOMITING --STATES SHE HAS BEEN VOMITING "NON-STOP" SINCE Wednesday02/25/19--LATER STATES SYMPTOMS HAVE BEEN GOING ON FOR OVER A WEEK UNABLE TO STATE HOW MANY TIMES SHE HAS VOMITED TODAY STATES SHE HAS NOT EATEN SINCE WEDNESDAY, BUT HAS BEEN DRINKING BUT "CAN'T KEEP IT DOWN" PT HAD NORMAL BM TODAY, NO DIARRHEA. NO BLACK/BLOODY/TARRY STOOLS PT IS STILL VOIDING BUT THINKS AMOUNT IS DECREASED THINKS SHE MIGHT HAVE HAD FEVER OFF AND ON, BUT HAS NOT CHECKED TEMP PT STATES SHE HAS TAKEN PHENERGAN AT 1400 TODAY AND HAS TAKEN OTC ZANTAC, WITHOUT RELIEF HAS ZOFRAN BUT HAS NOT TAKEN ANY TODAY PT WAS IN [facility] ER 02/22/19 FOR THIS PROBLEM AND WAS GIVEN RX FOR ZOFRAN PT WAS IN [place] OVER THE WEEKEND AND WENT TO AN ER THERE ON WEDNESDAY NIGHT PT WAS IN [facility] ER AGAIN ON WEDNESDAY AND GIVEN RX'S FOR ZOFRAN AND PHENERGAN. LMP 01/09-01/12--PT STATES SHE IS , BY HOME TEST STATES SHE HAS AN APPOINTMENT WITH DR. RUFFIN 03/02/19 FOR NEW OB VISIT PT STATES SHE HAD THESE SAME SYMPTOMS WITH PRIOR --HAD ULTRASOUND DURING --REPORTEDLY NORMAL, BUT NO TESTS AFTER THAT. PT IS AB [address] PCP: DR. WATTS OB: DR. RUFFIN Allergies and Home Medications Allergies Coded Allergies: No Known Drug Allergies (Unverified , 12/14/16) Home Medications Nitrofurantoin Monohyd/M-Cryst 100 Mg Capsule, 100 MG PO BID Prescribed by: RUSSELL LOZOYA on 02/28/192199 Ondansetron HCl 4 Mg Tab, 4 MG PO Q6H PRN for NAUSEA/VOMITING-1ST LINE Prescribed by: DENISE PHOENIX on 02/22/19 1041 Promethazine HCl 25 Mg Tablet, 25 MG PO Q6H PRN for NAUSEA/VOMITING, (Reported) Promethazine HCl 25 Mg Supp.rect, 25 MG RC Q4H Prescribed by: RUSSELL LOZOYA on 02/28/192151 Sucralfate 1 Gm/10 Ml Oral.susp, 1 GM PO QID AC AND HS Prescribed by: RUSSELL LOZOYA on 02/28/192151 Patient Home Medication List Home Medication List Reviewed: Yes Review of Systems Review of Systems Constitutional: see HPI Respiratory: No Symptoms Reported Gastrointestinal: See HPI, Abdominal Pain (BURNING); Denies Constipated, Denies Diarrhea; Nausea, Poor Fluid Intake, Vomiting Genitourinary: See HPI; Denies Burning Musculoskeletal: see HPI, back pain Skin: no symptoms reported Psychiatric/Neurological: No Symptoms Reported Endocrine: No Symptoms Reported Hematologic/Lymphatic: No Symptoms Reported Past Mllokki-Wypkuz-Rbguhr Hx Patient Social History Alcohol Use: Denies Use Recreational Drug Use: Yes (DENIES BUT UDS + FOR THC ON 02/28/19) Drug of Choice: DENIES BUT UDS + FOR THC ON 02/28/19 Smoking Status: Current Everyday Smoker (1 PPD) Type Used: Cigarettes (1 PPD) 2nd Hand Smoke Exposure: Yes Recent Foreign Travel: No Contact w/Someone Who Travel: No Recent Infectious Disease Expo: No Recent Hopitalizations: No Immunizations Up To Date Tetanus Booster (TDap): Unknown Seasonal Allergies Seasonal Allergies: No Past Medical History Surgeries: Yes (D&C X 1 ) Respiratory: No Cardiac: No Neurological: No : Yes Hx : 5 Hx Para: 2 Hx Total # of Abortions (Sp): 2 Reproductive Disorders: No Genitourinary: No Gastrointestinal: No Musculoskeletal: No Endocrine: No HEENT: No Cancer: No Did You Recieve Any Treatments: No Psychosocial: Yes Anxiety, Depression Integumentary: No Blood Disorders: Yes (ANEMIA) Physical Exam Vital Signs Vital Signs - First Documented 02/28/19 17:43 Temp 98.9 Pulse 86 Resp 18 B/P (MAP) 151/91 (111) Pulse Ox 98 Capillary Refill : Less Than 3 Seconds Height/Weight/BMI Height: 5'2.00" Weight: 130lbs. oz. 58.354088ir; 23.77 BMI Method:Stated General Appearance: WD/WN, no apparent distress, other (PT SLEEPING VERY SOUNDLY, THEN ON WAKING BECOMES INCREASINGLY DRAMATIC--WAILING, BELLIGERENT, CURSING, DEMANDING--CONSTANTLY YELLING "OH MY FUCKING GOD" " I'M GETTING FUCKING PISSED" "I'M FUCKING HURTING" "SOMEBODY BETTER GIVE ME SOMETHING" ) Respiratory: normal breath sounds, no respiratory distress, no accessory muscle use Cardiovascular: regular rate, rhythm, no murmur Gastrointestinal: normal bowel sounds, soft, no organomegaly, no pulsatile mass , tenderness (EPIGASTRIC) Extremities: normal inspection, no pedal edema, normal capillary refill Back: no CVA tenderness Neurologic/Psychiatric: drag down II-XII nml as tested, no motor/sensory deficits, alert, oriented x 3 Skin: normal color, warm/dry; No rash Progress/Results/Core Measures Results/Orders Lab Results Laboratory Tests Test 02/28/19 18:30 02/28/19 18:40 Range/Units White Blood Count 9.6 4.3-11.0 10^3/uL Red Blood Count 3.80 L 4.35-5.85 10^6/uL Hemoglobin 12.4 11.5-16.0 G/DL Hematocrit 35 35-52 % Mean Corpuscular Volume 91 80-99 FL Mean Corpuscular Hemoglobin 33 25-34 PG Mean Corpuscular Hemoglobin Concent 36 32-36 G/DL Red Cell Distribution Width 11.8 10.0-14.5 % Platelet Count 244 130-400 10^3/uL Mean Platelet Volume 10.1 7.4-10.4 FL Neutrophils (%) (Auto) 80 H 42-75 % Lymphocytes (%) (Auto) 12 12-44 % Monocytes (%) (Auto) 8 0-12 % Eosinophils (%) (Auto) 0 0-10 % Basophils (%) (Auto) 0 0-10 % Neutrophils # (Auto) 7.7 1.8-7.8 X 10^3 Lymphocytes # (Auto) 1.1 1.0-4.0 X 10^3 Monocytes # (Auto) 0.8 0.0-1.0 X 10^3 Eosinophils # (Auto) 0.0 0.0-0.3 10^3/uL Basophils # (Auto) 0.0 0.0-0.1 10^3/uL Sodium Level 136 135-145 MMOL/L Potassium Level 3.2 L 3.6-5.0 MMOL/L Chloride Level 101 98-107 MMOL/L Carbon Dioxide Level 20 L 21-32 MMOL/L Anion Gap 15 H 5-14 MMOL/L Blood Urea Nitrogen 9 7-18 MG/DL Creatinine 0.59 L 0.60-1.30 MG/DL Estimat Glomerular Filtration Rate > 60 BUN/Creatinine Ratio 15 Glucose Level 78 70-105 MG/DL Calcium Level 9.9 8.5-10.1 MG/DL Corrected Calcium 8.5-10.1 MG/DL Magnesium Level 2.3 1.8-2.4 MG/DL Total Bilirubin 0.8 0.1-1.0 MG/DL Aspartate Amino Transf (AST/SGOT) 23 5-34 U/L Alanine Aminotransferase (ALT/SGPT) 19 0-55 U/L Alkaline Phosphatase 45 40-136 U/L Total Protein 7.7 6.4-8.2 GM/DL Albumin 4.8 H 3.2-4.5 GM/DL Amylase Level 41 25-125 U/L Lipase 13 8-78 U/L Human Chorionic Gonadotropin, Quant [id number] H <5 MIU/ML Serum Test, Qualitative POSITIVE NEGATIVE Serum Alcohol < 10 <10 MG/DL Urine Color YELLOW Urine Clarity VERY CLOUDY H Urine pH 7 5-9 Urine Specific [place] 1.020 1.016-1.022 Urine Protein 3+ H NEGATIVE Urine Glucose (UA) NEGATIVE NEGATIVE Urine Ketones 4+ H NEGATIVE Urine Nitrite NEGATIVE NEGATIVE Urine Bilirubin NEGATIVE NEGATIVE Urine Urobilinogen 1 NORMAL MG/DL Urine Leukocyte Esterase 1+ H NEGATIVE Urine RBC (Auto) 2+ H NEGATIVE Urine RBC 5-10 H /HPF Urine WBC 0-2 /HPF Urine Squamous Epithelial Cells 2-5 /HPF Urine Crystals PRESENT H /LPF Urine Amorphous Sediment MOD ROSMERY PHOSPHATE H /LPF Urine Bacteria FEW H /HPF Urine Casts NONE /LPF Urine Mucus LARGE H /LPF Urine Culture Indicated NO Urine Opiates Screen NEGATIVE NEGATIVE Urine Oxycodone Screen NEGATIVE NEGATIVE Urine Methadone Screen NEGATIVE NEGATIVE Urine Propoxyphene Screen NEGATIVE NEGATIVE Urine Barbiturates Screen NEGATIVE NEGATIVE Ur Tricyclic Antidepressants Screen NEGATIVE NEGATIVE Urine Phencyclidine Screen NEGATIVE NEGATIVE Urine Amphetamines Screen NEGATIVE NEGATIVE Urine Methamphetamines Screen NEGATIVE NEGATIVE Urine Benzodiazepines Screen NEGATIVE NEGATIVE Urine Cocaine Screen NEGATIVE NEGATIVE Urine Cannabinoids Screen POSITIVE H NEGATIVE My Orders Orders - RUSSELL LOZOYA DO Urine Bedside (02/28/19 19:05) Orthostatic Vital Signs (Adult (02/28/19 19:05) Amylase (02/28/19 19:05) Cbc With Automated Diff (02/28/19 19:05) Comprehensive Metabolic Panel (02/28/19 19:05) Hcg,Qualitative Serum (02/28/19 19:05) Lipase (02/28/19 19:05) Magnesium (02/28/19 19:05) Ua Culture If Indicated (02/28/19 19:05) Ed Iv/Invasive Line Start (02/28/19 19:05) Ondansetron Injection (Zofran Injectio (02/28/19 19:15) Ed Iv/Invasive Line Start (02/28/19 19:05) Lactated Ringers (Lr 1000 Ml Iv Solution (02/28/19 19:05) Hcg,Quantitative (02/28/19 19:14) Abo Rh Type (02/28/19 19:14) Promethazine Injection (Phenergan Injec (02/28/19 19:14) Famotidine Injection (Pepcid Injection) (02/28/19 19:14) Diphenhydramine Injection (Benadryl Inje (02/28/19 19:15) Alcohol (02/28/19 19:38) Drug Screen Stat (Urine) (02/28/19 19:38) Antacid Suspension (Mylanta Suspension (02/28/19 20:45) Potassium Chloride (Tablet) (Klor Con Ta (02/28/19 21:45) Rx-Promethazine Hcl (Rx-Phenergan Supp) (02/28/19 21:57) Ed Iv/Invasive Line Start (02/28/19 21:58) Lactated Ringers (Lr 1000 Ml Iv Solution (02/28/19 21:58) Medications Given in ED Current Medications Medications Dose Ordered Sig/Ishmael Route Start Time Stop Time Status Last Admin Dose Admin Al Hydrox/Mg Hydrox/Simethicone 30 ml ONCE ONCE PO 02/28/19 20:45 02/28/19 20:46 DC 02/28/19 21:34 30 ML Diphenhydramine HCl 25 mg ONCE ONCE IVP 02/28/19 19:15 02/28/19 19:17 DC 02/28/19 19:33 25 MG Lactated Ringer's 1,000 ml @ 0 mls/hr Q0M ONCE IV 02/28/19 19:05 02/28/19 19:07 DC 02/28/19 19:33 1,000 MLS/HR Lactated Ringer's 1,000 ml @ 0 mls/hr Q0M ONCE IV 02/28/19 21:58 02/28/19 21:59 DC 02/28/19 22:08 1,000 MLS/HR Ondansetron HCl 4 mg ONCE ONCE IVP 02/28/19 19:15 02/28/19 19:16 DC 02/28/19 19:33 4 MG Potassium Chloride 20 meq ONCE ONCE PO 02/28/19 21:45 02/28/19 21:58 DC 02/28/19 22:08 20 MEQ Vital Signs/I&O 02/28/19 02/28/19 17:43 23:22 Temp 98.9 98.9 Pulse 86 86 Resp 18 18 B/P (MAP) 151/91 (111) 151/91 (111) Pulse Ox 98 98 Blood Pressure Mean: 111 Progress Progress Note : Progress Note NAUSEA AND EPIGASTRIC BURNING IMPROVED AT DISMISSAL-HAD SMALL AMOUNT OF CLEAR EMESIS ON ARRIVAL, THEN NO FURTHER EMESIS PT TOLERATING ICE CHIPS PRIOR TO DISMISSAL PT STATES SHE FEELS MUCH BETTER Departure Impression Primary Impression: Nausea and vomiting during prior to 22 weeks gestation Additional Impressions: UTI (urinary tract infection) in in first trimester Illicit drug use Cigarette smoker Disposition: HOME, SELF-CARE Condition: Improved Departure-Patient Inst. Referrals: SELF,MARYJO RAO (PCP/Family) Primary Care Physician MUNIR RUFFIN DO Patient Instructions: Avoiding Infections in , Nausea and Vomiting of (DC), Urinary Tract Infection, Adult (DC) Add. Discharge Instructions: CLEAR LIQUIDS, SIPS AT A TIME--WATER, BROTH, JELLO, GATORADE, POPSICLES TAKE YOUR ZOFRAN NEEDED CONTINUED ZANTAC --300 MG DAILY KEEP YOUR APPOINTMENT WITH DR. RUFFIN THIS WEEK SCHEDULED All discharge instructions reviewed with patient and/or family. Voiced understanding. Scripts Nitrofurantoin Monohyd/M-Cryst (Macrobid 100 mg Capsule) 100 Mg Capsule 100 MG PO BID, #20 CAP Prov: RUSSELL LOZOYA DO 02/28/19 Promethazine HCl (Phenergan) 25 Mg Supp.rect 25 MG RC Q4H for Nausea/Vomiting, #10 SUPP.RECT Prov: RUSSELL LOZOYA DO 02/28/19 Sucralfate (Carafate) 1 Gm/10 Ml Oral.susp 1 GM PO QID AC AND HS, #400 ML Prov: RUSSELL LOZOYA DO 02/28/19 RUSSELL LOZOYA DO Feb 28, 2019 19:35
[2019-02-28 19:57] LABS: AMPHETAMINE SCREEN, URINE NEGATIVE (NEGATIVE); BARBITURATE SCREEN URINE NEGATIVE (NEGATIVE); BENZODIAZEPINES SCREEN URINE NEGATIVE (NEGATIVE); CANNABINOID SCREEN, URINE POSITIVE (NEGATIVE); COCAINE SCREEN URINE NEGATIVE (NEGATIVE); METHADONE STAT NEGATIVE (NEGATIVE); METHAMPHETAMINE SCREEN URINE S NEGATIVE (NEGATIVE); OPIATE SCREEN URINE NEGATIVE (NEGATIVE); OXYCODONE STAT NEGATIVE (NEGATIVE); PROPOXYPHENE STAT NEGATIVE (NEGATIVE); TRICYCLIC ANTIDEPRESSANTS SCRE NEGATIVE (NEGATIVE)
[2019-02-28] MEDS ORDERED: ANTACID SUSP 30 ML UDC (MYLANTA) PO ONE (20:45)
[2019-02-28] MEDS ORDERED: KCL 10 MEQ TAB (MICRO K) PO ONE (21:45)
[2019-02-28] MEDS ORDERED: SUCR1ORA5 PO (21:52)
[2019-02-28] MEDS ORDERED: PROM25SU43 RC (21:52)
[2019-02-28] MEDS ORDERED: RX-PHENERGAN 25 MG SUPP PPK#3 PR STA (21:57)
[2019-02-28] MEDS ORDERED: NITR-65 PO (22:00)
[2019-02-28 23:22] VITALS: BP 151/91
[2019-03-03] MEDS ORDERED: SCOP1PAT17 TD (12:25)
[2019-03-03] MEDS ORDERED: MIRT-47 PO (12:25)
[2019-03-03] MEDS ORDERED: PYRI50TA11 PO (12:25)
[2019-03-03] MEDS ORDERED: DOXY1TAB6 PO (12:25)
== END 2019-02-28 23:22 | disposition home or self-care (01) ==
LOC: EDUNIT# 17:25 → ER 17:25
DX: O23.41 Unspecified infection of urinary tract in pregnancy, first trimester (principal); O99.321 Drug use complicating pregnancy, first trimester; F19.10 Other psychoactive substance abuse, uncomplicated; O99.341 Other mental disorders complicating pregnancy, first trimester; F41.9 Anxiety disorder, unspecified; F32.9 Major depressive disorder, single episode, unspecified; O99.011 Anemia complicating pregnancy, first trimester; D64.9 Anemia, unspecified; O99.331 Smoking (tobacco) complicating pregnancy, first trimester; F17.210 Nicotine dependence, cigarettes, uncomplicated; Z3A.01 Less than 8 weeks gestation of pregnancy; Z98.890 Other specified postprocedural states
CPT/HCPCS: 36415; 80053; 80306; 80320; 81000; 82150; 83690; 83735; 84702; 84703; 85025; 86900; 86901

== ENCOUNTER 2019-03-02 14:22 | Outpatient (CLI) | payer MEDICAID ==
[~2019-03-02] VITALS: Ht 157.5 cm; Wt 52.2 kg
--- NOTE | 2019-03-02 14:07 | NUR ---
Pt in 's office at this time. Dr. Lamb called RN to notify of pending admission.
--- NOTE | 2019-03-02 14:15 | NUR ---
YEYO REBOLLAR presented to unit via ambulation from clinic, accompanied by rosario MENDIETA, with c/o HYPEREMISIS. YEYO REBOLLAR weighed, gowned, voided, and to bed. EFHM and TOCO applied, VS taken. YEYO REBOLLAR oriented to bed controls, call light, TV, heat, and A/C controls.
[~2019-03-02 14:22] MED LIST changes: +PROM25SU43 RC; +PROM25TA14 PO; +RANI150T46 PO; +SUCR1ORA5 PO
--- NOTE | 2019-03-02 14:30 | NUR ---
Dr. Lamb notified pt in computer system, awaiting further orders
[2019-03-02] MEDS ORDERED: D5 LR IV SOLUTION 1,000 ML IV SCH (14:32)
[2019-03-02] MEDS ORDERED: D5 LR IV SOLUTION 1,000 ML IV ONE (14:45)
[2019-03-02] MEDS ORDERED: [UNRECOGNIZED DRUG - OTHER] IV SCH ×5 (14:45)
[2019-03-02] MEDS ORDERED: ANTACID SUSP 30 ML UDC (MYLANTA) PO PRN (14:45)
[2019-03-02] MEDS ORDERED: THIAMINE IV SCH ×5 (14:45)
[2019-03-02] MEDS ORDERED: FOLIC ACID IV SCH ×5 (14:45)
[2019-03-02] MEDS ORDERED: VITAMIN MULTI IV SCH ×5 (14:45)
[2019-03-02 15:00] VITALS: BP 106/67
[2019-03-02] MEDS ORDERED: SCOPOLAMINE 1.5 MG (TRANSDERM-SCOP) PATCH TD NR (15:00)
[2019-03-02] MEDS ORDERED: CATHETER FLUSH 10 ML SYR IV PRN (15:15)
--- NOTE | 2019-03-02 15:18 | NUR ---
Dr Lamb called RN to notify orders are in. will be by after clinic to round.
[2019-03-02] MEDS: PROCHLORPERAZINE 10 MG/2ML INJ (COMPAZINE) IV PRN ×2 (15:23→20:43)
[2019-03-02] MEDS ORDERED: LIDOCAINE 2% VISCOUS 15 ML UDC PO SCH (16:00)
--- NOTE | 2019-03-02 17:18 | Discharge Inst-Women's Service ---
Discharge Inst-Women's Serv Depart Medication/Instructions New, Converted or Re-Newed RX: RX on Chart Instructions Diet instructions - Hyperemesis Diet in The following are guidelines and suggested foods to help manage symptoms: Once vomiting decreases to less than 2 to 3 times a day, start a Hyperemesis diet instead of clear liquids. Try to eat small frequent meals with snacks between meals and at bedtime. This helps to get in more calories, vitamins and minerals. Suggested foods (in 1 to 2 ounce or cup measure portions) _ Bagels _ Baked potatoes _ Bananas (small) _ Breads, toast _ Crackers _ Cream of wheat _ Dry cereals _ Mashed potatoes _ Oatmeal _ Pears _ Plain pasta, noodles _ Plain rice May add salt to Fluids _ Fruit juices (diluted) _ Harika suhas, Sprite, Cola _ Skim milk _ Weak tea Wait 15 to 30 minutes after eating before drinking fluids and drink majority of liquids between meals. Limit to to 1 cup portions for better tolerance. After 2 to 3 days of little or no vomiting, add these foods for extra protein and calories: _ Baked chicken (without skin) _ Broiled, baked fish _ Eggs _ Fruit cocktail _ Jell-O _ Lean meats _ Low fat mild cheese _ Low-fat cottage cheese _ Sherbet _ Soups _ Yogurt Sample [facility]: [facility]unch: Dinner: _Bagel _Dry cereal _Hot tea _White bread _ baked potato _Crackers _Apple juice _White bread _Whipped potatoes _Crackers _Skim milkSnack: Snack: Snack: _Banana _Crackers _Sprite _Cream of wheat or oatmeal General Guidelines Eat slowly and chew your food well. Do not lie down for at least 2 hours after eating. Avoid heavily spiced, high-fat foods such as fried foods, Austrian dishes, etc. Avoid foods that have a strong smell. Cold foods may be tolerated well since they have less smell. Avoid mixing hot and cold foods at the same meal. Eat foods you feel you can handle. Drink liquids between meals. When cooking, open windows or use exhaust fans to get rid of strong odors. Stay out of the kitchen when food is being prepared. Using harika for the treatment of hyperemesis has been common in recent years. Taking 250 mg of a harika supplement has been proven to reduce symptoms of hyperemesis. Always talk to your doctor before adding any herbal supplements to your treatment plan. Finger cookies, harika suhas and candies may also help your symptoms. Final Diagnosis hyperemesis with dehydration hypokalemia gastroenteritis hypokalemia 7 week gestation HSV Consults/Follow Up Additional Follow Up: Yes (follow up [address] Ruffin/ US at that visit ( tell motel front desk clerk she needs US to document on the schedule)) Activity Activity: Activity as Tolerated Driving Instructions: You May Drive NO SMOKING: NO SMOKING (no pot smoking) Nothing Inside Vagina: No Douching, No Tampons Diet Discharge Diet: Other Diet (hyperemesis, see included) Symptoms to Report to : Fever Over 101 Degrees F, Urination Difficulty, Cough Up/Vomit Blood, Diarrhea(Persistant), Dizziness/Fainting, Nausea/Vomiting For Any Problems or Questions: Contact Your Physician MUNIR RUFFIN DO Mar 02, 2019 17:18
--- NOTE | 2019-03-02 20:40 | NUR ---
Pt. vomited approx 100 ml bile emesis, will give meds. POC reviewed, pt. verbalized understanding & appreciative, fresh sprite & ice given.
[2019-03-02] MEDS: FAMOTIDINE 20MG/2ML IV (PEPCID) IVP SCH (20:43)
[2019-03-02] MEDS: PYRIDOXINE (VITAMIN B-6) 50 MG TABLET PO SCH (20:44)
[2019-03-02 20:45] VITALS: BP 131/81
[2019-03-02] MEDS ORDERED: MIRTAZAPINE 15 MG (REMERON) TAB PO SCH (21:00)
--- NOTE | 2019-03-02 21:00 | NUR ---
Pt. up to BR & voided for 1st time since arrival, UA sent to lab, urine very cloudy & strong odor.
[2019-03-02 21:48] LABS: BILIRUBIN,URINE NEGATIVE (NEGATIVE); CLARITY,URINE SLIGHTLY CLOUDY; COLOR,URINE YELLOW; GLUCOSE, URINE (UA) NEGATIVE (NEGATIVE); KETONES,URINE 4+ (NEGATIVE); LEUKOCYTE ESTERASE ,URINE NEGATIVE (NEGATIVE); NITRITE,URINE NEGATIVE (NEGATIVE); PH,URINE 7 (5-9); PROTEIN,URINE 1+ (NEGATIVE); UROBILINOGEN,URINE NORMAL (NORMAL)
[2019-03-02 21:54] LABS: BACTERIA,URINE LARGE /HPF; WBC,URINE 0-2 /HPF
[2019-03-02] MEDS ORDERED: CATHETER FLUSH 10 ML SYR IV SCH (22:00)
--- NOTE | 2019-03-02 22:00 | NUR ---
Dr. Lamb notified of UA results, no new orders rc'd.
[2019-03-03 00:08] VITALS: BP 125/85
[2019-03-03] MEDS: D5 1/2 NS W/KCL 40 MEQ/L 1,000 ML IV SCH ×2 (00:08→08:55)
[2019-03-03 08:40] VITALS: BP 125/83
[2019-03-03] MEDS: FAMOTIDINE 20MG/2ML IV (PEPCID) IVP SCH (08:52)
[2019-03-03] MEDS: PROCHLORPERAZINE 10 MG/2ML INJ (COMPAZINE) IV PRN (08:52)
[2019-03-03] MEDS: PYRIDOXINE (VITAMIN B-6) 50 MG TABLET PO SCH (08:54)
--- NOTE | 2019-03-03 10:43 | Progress Note (SOAP) ---
Subjective Date Seen by a Provider: Mar 03, 2019 Time Seen by a Provider: 10:30 Subjective/Events-last exam No void until 2099. Emesis last night. continues to have loose stools. But none this morning. Has only taken sips of water. Slept most of yesterday and all night. Low grade fever. She states she feels hungry now. Would like to go home home now. If she is able to keep down her lunch then will dc home. Starting to get an HSV outbreak on her left palm. Would like valtrex. Called in some yesterday but she was admitted so hasn't taken it yet. awaiting am lab. Laboratory Tests Test 03/02/19 21:00 Range/Units Urine Color YELLOW Urine Clarity SLIGHTLY CLOUDY Urine pH 7 5-9 Urine Specific [place] 1.015 L 1.016-1.022 Urine Protein 1+ H NEGATIVE Urine Glucose (UA) NEGATIVE NEGATIVE Urine Ketones 4+ H NEGATIVE Urine Nitrite NEGATIVE NEGATIVE Urine Bilirubin NEGATIVE NEGATIVE Urine Urobilinogen NORMAL NORMAL MG/DL Urine Leukocyte Esterase NEGATIVE NEGATIVE Urine RBC (Auto) 1+ H NEGATIVE Urine RBC NONE /HPF Urine WBC 0-2 /HPF Urine Squamous Epithelial Cells 2-5 /HPF Urine Crystals NONE /LPF Urine Bacteria LARGE H /HPF Urine Casts NONE /LPF Urine Mucus SMALL H /LPF Urine Culture Indicated CULTURE PENDING 03/03/19 03/03/19 00:08 08:40 Temp 100.2 99.4 Pulse 76 72 Resp 16 16 B/P (MAP) 125/85 (98) 125/83 (97) Pulse Ox 98 100 O2 Delivery Room Air Room Air 03/03/19 00:00 Intake Total 325 ml Output Total 0 ml Balance 325 ml Objective Exam Vital Signs Date Time Temp Pulse Resp B/P (MAP) Pulse Ox O2 Delivery O2 Flow Rate FiO2 03/03/19 08:40 99.4 72 16 125/83 (97) 100 Room Air 03/03/19 00:08 100.2 76 16 125/85 (98) 98 Room Air 03/02/19 20:45 99.6 78 16 131/81 (98) 99 Room Air 03/02/19 15:00 100.2 88 16 106/67 (80) 98 Room Air I & O 03/03/19 07:00 Intake Total 1336.3 ml Output Total 850 ml Balance 486.3 ml Capillary Refill : General Appearance: No Apparent Distress, Other (Appears well) HEENT: Moist Mucous Membranes Respiratory: Chest Non Tender, Lungs Clear, Normal Breath Sounds Cardiovascular: Regular Rate, Rhythm, No Edema Gastrointestinal: normal bowel sounds, non tender Results Lab Laboratory Tests Test 03/02/19 21:00 03/03/19 10:48 Range/Units Urine Color YELLOW Urine Clarity SLIGHTLY CLOUDY Urine pH 7 5-9 Urine Specific [place] 1.015 L 1.016-1.022 Urine Protein 1+ H NEGATIVE Urine Glucose (UA) NEGATIVE NEGATIVE Urine Ketones 4+ H NEGATIVE Urine Nitrite NEGATIVE NEGATIVE Urine Bilirubin NEGATIVE NEGATIVE Urine Urobilinogen NORMAL NORMAL MG/DL Urine Leukocyte Esterase NEGATIVE NEGATIVE Urine RBC (Auto) 1+ H NEGATIVE Urine RBC NONE /HPF Urine WBC 0-2 /HPF Urine Squamous Epithelial Cells 2-5 /HPF Urine Crystals NONE /LPF Urine Bacteria LARGE H /HPF Urine Casts NONE /LPF Urine Mucus SMALL H /LPF Urine Culture Indicated CULTURE PENDING Sodium Level 133 L 135-145 MMOL/L Potassium Level 3.7 3.6-5.0 MMOL/L Chloride Level 106 98-107 MMOL/L Carbon Dioxide Level 19 L 21-32 MMOL/L Anion Gap 8 5-14 MMOL/L Blood Urea Nitrogen 3 L 7-18 MG/DL Creatinine 0.52 L 0.60-1.30 MG/DL Estimat Glomerular Filtration Rate > 60 BUN/Creatinine Ratio 6 Glucose Level 111 H 70-105 MG/DL Calcium Level 9.1 8.5-10.1 MG/DL Laboratory Tests 03/02/19 21:00: Urine Color YELLOW, Urine Clarity SLIGHTLY CLOUDY, Urine pH 7, Urine Specific [place] 1.015L, Urine Protein 1+H, Urine Glucose (UA) NEGATIVE, Urine Ketones 4+ H, Urine Nitrite NEGATIVE, Urine Bilirubin NEGATIVE, Urine Urobilinogen NORMAL, Urine Leukocyte Esterase NEGATIVE, Urine RBC (Auto) 1+H, Urine RBC NONE, Urine WBC 0-2, Urine Squamous Epithelial Cells 2-5, Urine Crystals NONE, Urine Bacteria LARGEH, Urine Casts NONE, Urine Mucus SMALLH, Urine Culture Indicated CULTURE PENDING Assessment/Plan Assessment/Plan Assess & Plan/Chief Complaint 1. Hyperemesis gravidarum - improved 2. Dehydration - improving 3. hypokalemia - improved 4. 7 week gestation Plan DC home with scop patch, hyperemesis diet, promethazine prn Bongesta, potassium. MUNIR RUFFIN DO Mar 03, 2019 10:43
[2019-03-03] MEDS ORDERED: ACETAMINOPHEN 500 MG TAB (TYLENOL) PO PRN (10:45)
[2019-03-03] MEDS ORDERED: LOPERAMIDE 2 MG (IMODIUM) CAP PO PRN (10:45)
[2019-03-03] MEDS ORDERED: LOPERAMIDE 2 MG (IMODIUM) CAP PO NR (10:45)
[2019-03-03] MEDS ORDERED: VALACYCLOVIR 500 MG TAB (VALTREX) PO SCH (11:00)
[2019-03-03 11:10] LABS: BUN/CREATININE RATIO 6; CALCIUM 9.1 MG/DL (8.5-10.1); CARBON DIOXIDE 19 MMOL/L (21-32); CHLORIDE 106 MMOL/L (98-107); CREATININE SERUM 0.52 MG/DL (0.60-1.30); GFR ESTIMATED > 60; GLUCOSE 111 MG/DL (70-105); POTASSIUM 3.7 MMOL/L (3.6-5.0); SODIUM 133 MMOL/L (135-145)
[2019-03-03] MEDS ORDERED: DOXY1TAB6 PO (12:25)
[2019-03-03] MEDS ORDERED: PYRI50TA11 PO (12:25)
[2019-03-03] MEDS ORDERED: MIRT-47 PO (12:25)
[2019-03-03] MEDS ORDERED: SCOP1PAT17 TD (12:25)
--- NOTE | 2019-03-03 13:15 | NUR ---
Pt tolerating solid fair - does not like hospital food. Drinking and voiding well. Ambulated to exit via this nurse and . Verbalized home instructions.
[2019-03-05] MEDS ORDERED: SCOPOLAMINE PATCH REMOVAL TP SCH (14:59)
== END 2019-03-03 13:15 | disposition home or self-care (01) ==
LOC: WSo 14:22 → LDRP 14:24 → WSo 03-03 13:15
PROVIDERS: ATTEND Obstetrics & Gynecology
DX: O21.1 Hyperemesis gravidarum with metabolic disturbance (principal); O98.511 Other viral diseases complicating pregnancy, first trimester; B00.9 Herpesviral infection, unspecified; Z3A.01 Less than 8 weeks gestation of pregnancy
CPT/HCPCS: 36415; 80048; 81000; 87088

== ENCOUNTER → 2019-06-02 | Outpatient (CLI) | payer MEDICAID ==
[~2019-06-02] MED LIST changes: +DOXY1TAB6 PO; +MIRT-47 PO; +PYRI50TA11 PO; +SCOP1PAT17 TD
--- NOTE | 2019-06-02 12:51 | Diagnostic Imaging Report ---
INDICATION: anatomical assessment during normal . TECHNIQUE: Multiple real-time grayscale images were obtained over the gravid uterus. COMPARISON: None FINDINGS: There is presence of a single viable intrauterine currently not cephalic but variable presentation. Normal amount of amniotic fluid. Placenta is anterior with evidence for previa. Cervical length 3.9 cm. Maternal adnexa not visualized. Visualized anatomical structures including the kidneys, bladder, stomach, intracranial structures, four-chamber heart, three-vessel cord and cord insertion site as well as spine appearing unremarkable. Biometrical measurements are as follows: Biparietal 5.04 cm, age 21 weeks 2 days. Head circumference 18.85 cm, age 21 weeks 2 days. Abdominal circumference 16.50 cm, age 21 weeks 4 days. Femur length 3.26 cm, age 20 weeks 2 days. Sonographic estimate age: 21 weeks 1 days. Sonographic estimated date of delivery: 10/12/2019. Estimated Weight: 389 gm (+/- 57 gm). LMP percentile: 67%. heart rate: 160 beats per minute. number: 1 of 1. IMPRESSION: Single viable intrauterine currently in variable presentation. Sonographic estimated age 21 weeks one day for an estimated date of delivery October 12, 2019. No abnormalities suggested at this time. Dictated by: Dictated on workstation # [id number]
== END ==
LOC: RAD 10:19
PROVIDERS: ATTEND Obstetrics & Gynecology
DX: Z34.92 Encounter for supervision of normal pregnancy, unspecified, second trimester (principal); Z3A.21 21 weeks gestation of pregnancy
CPT/HCPCS: 76805

== ENCOUNTER → 2019-08-18 | Outpatient (CLI) | payer MEDICAID ==
[~2019-08-18] MED LIST changes: -PYRI50TA11 PO; +PYRI50TA13 PO; +RANI-613 PO; -RANI150T46 PO
--- NOTE | 2019-08-18 11:47 | Diagnostic Imaging Report ---
INDICATION: Size and date discrepancy. TECHNIQUE: Multiple real-time grayscale images were obtained over the gravid uterus. COMPARISON: 06/02/2019. FINDINGS: There is a single live fetus in a cephalic presentation. heart rate was recorded at 155 bpm. Placenta is anterior. Amniotic fluid index is 21 cm. The bladder, stomach and four-chamber heart view are unremarkable. Biometrical measurements are as follows: Biparietal 8.66 cm, age 35 weeks 0 days. Head circumference 32.44 cm, age 36 weeks 6 days. Abdominal circumference 30.38 cm, age 34 weeks 3 days. Femur length 6.22 cm, age 32 weeks 2 days. Sonographic estimate age: 34 weeks 5 days. Sonographic estimated date of delivery: 09/24/2019. Estimated Weight: 2337 gm (+/- 341 gm). LMP percentile: 98%. heart rate: 155 beats per minute. number: 1 of 1. IMPRESSION: Single live IUP measuring 34-35 weeks gestational age, approximately 3 weeks early when compared with prior ultrasound from 06/02/2019. No complicating features are detected. Dictated by: Dictated on workstation # [id number]
== END ==
LOC: RAD 10:16
PROVIDERS: ATTEND Obstetrics & Gynecology
DX: O26.843 Uterine size-date discrepancy, third trimester (principal); O99.333 Smoking (tobacco) complicating pregnancy, third trimester; Z3A.34 34 weeks gestation of pregnancy
CPT/HCPCS: 76816

== ENCOUNTER 2019-09-16 10:11 | Inpatient (IN) | payer MEDICAID ==
[~2019-09-16] VITALS: Ht 157.5 cm; Wt 74.9 kg
[2019-09-16] VITALS (34 sets, daily range): BP systolic 113–160; BP diastolic 50–103
--- NOTE | 2019-09-16 10:05 | NUR ---
YEYO REBOLLAR presented to unit via AMBULATORY from ED, accompanied by S/O, with c/o SROM. YEYO REBOLLAR weighed, gowned, voided, and to bed. EFHM and TOCO applied, VS taken. YEYO REBOLLAR oriented to bed controls, call light, TV, heat, and A/C controls.
[2019-09-16] MEDS ORDERED: OXYTOCIN/NORMAL SALINE 500 ML IV SCH ×2 (10:47→17:00)
[2019-09-16] MEDS ORDERED: D5 LR IV SOLUTION 1,000 ML IV SCH (10:47)
[2019-09-16] MEDS ORDERED: AMPICILLIN FOR IV USE 2,000 MG in WATER (STERILE) FOR INJECTION 14.8 ML IV SCH (10:47)
[2019-09-16 11:22] LABS: BASOPHILS % (AUTO) 0 % (0-10); EOSINOPHILS # (AUTO) 0.1 10^3/uL (0.0-0.3); EOSINOPHILS % (AUTO) 1 % (0-10); HEMATOCRIT 29 % (35-52); HEMOGLOBIN 10.1 G/DL (11.5-16.0); LYMPHOCYTES # (AUTO) 1.9 X 10^3 (1.0-4.0); LYMPHOCYTES % (AUTO) 18 % (12-44); MEAN CORPUSCULAR HEMOGLOBIN 33 PG (25-34); MEAN CORPUSCULAR HGB CONC 35 G/DL (32-36); MEAN CORPUSCULAR VOLUME 96 FL (80-99); MEAN PLATELET VOLUME 10.1 FL (7.4-10.4); MONOCYTES # (AUTO) 0.7 X 10^3 (0.0-1.0); MONOCYTES % (AUTO) 6 % (0-12); NEUTROPHILS % (AUTO) 75 % (42-75); PLATELET COUNT 244 10^3/uL (130-400); RED CELL DISTRIBUTION WIDTH 12.7 % (10.0-14.5); WHITE BLOOD COUNT 10.7 10^3/uL (4.3-11.0)
[2019-09-16] MEDS ORDERED: PREN-37 PO (12:19)
[2019-09-16] MEDS ORDERED: ACET-2469 PO (12:20)
[2019-09-16] MEDS ORDERED: MAGN1TAB PO (12:21)
[2019-09-16] MEDS: HYDROmorphone 2 MG/ML VIAL (DILAUDID) IV PRN ×2 (13:28→16:19)
[2019-09-16] MEDS ORDERED: ONDANSETRON 4 MG/2 ML (SDV) Z0FRAN ONE (13:52)
[2019-09-16] MEDS: ONDANSETRON 4 MG/2 ML (SDV) Z0FRAN IVP PRN ×2 (13:57→20:33)
[2019-09-16] MEDS ORDERED: CATHETER FLUSH 10 ML SYR IV SCH ×2 (14:00→22:00)
[2019-09-16] MEDS ORDERED: FLU QUADRIvalent (5+ YOA) 2019-2020 (AFLURIA) 0.5 ML IM ONE (14:00)
[2019-09-16] MEDS ORDERED: AMPICILLIN FOR IV USE 1,000 MG in WATER (STERILE) FOR INJECTION 7.4 ML IV SCH (15:00)
[2019-09-16] MEDS ORDERED: NALOXONE 0.4 MG/ML 1 ML (NARCAN) VIAL ONE (16:12)
[2019-09-16] MEDS ORDERED: MEASLES,MUMPS,RUBELLA 1 EA INJ SQ ONE (17:00)
[2019-09-16] MEDS ORDERED: BENZOCAINE/MENTHOL (DERMOPLAST) 56 ML CAN TP PRN (17:00)
[2019-09-16] MEDS ORDERED: TETANUS,DIPTH,PERTUSS P/F (BOOSTRIX) 0.5 ML VIAL IM ONE (17:00)
[2019-09-16] MEDS ORDERED: WITCH HAZEL(TUCKS) 40 EA JAR TOP PRN (17:00)
[2019-09-16] MEDS ORDERED: DIBUCAINE (NUPERCAINAL) 1% OINT 30 GM TOP PRN (17:00)
[2019-09-16] MEDS ORDERED: HYDROcodone/APAP 5 MG/325 MG (LORTAB) TAB PO PRN (17:00)
--- NOTE | 2019-09-16 17:04 | History & Physical-OB ---
OB - Chief Complaint & HPI Date/Time Date of Admission: Date of Admission: Sep 16, 2019 at 10:40 Date seen by a Provider: Sep 16, 2019 Time Seen by a Provider: 12:30 Chief Complaint/History OB-Reason for Admission/Chief: Labor (SROM) Hx : 5 Hx Para: 2 Expected Date of Delivery: Oct 16, 2019 Gestational Age in Weeks: 35 Gestational Age in Days: 5 Admission Nurse Assessment Rev: Yes History of Labs O pos Antibody neg RI RPR NR HBsAg NR HIV NR GC neg GBS unknown Allergies and Home Medications Allergies Coded Allergies: No Known Drug Allergies (Unverified , 12/14/16) Home Medications Acetaminophen/Diphenhydramine 1 Each Tablet, 1 EACH PO PRN, (Reported) Doxylamine Succinate/Vit B6 1 Each Tab.ir.dr, 1 EACH PO BID Prescribed by: MUNIR RUFFIN on 03/03/19 122 Magnesium Carbonate/Al Hydrox 1 Each Tab.chew, 1 EACH PO PRN, (Reported) Mirtazapine 15 Mg Tab.rapdis, 7.5 MG PO HS Prescribed by: MUNIR RUFFIN on 03/03/19 122 Ondansetron HCl 4 Mg Tab, 4 MG PO Q6H PRN for NAUSEA/VOMITING-1ST LINE Prescribed by: DENISE PHOENIX on 02/22/19 1041 Vit/Iron Fumarate/FA 1 Each Tablet, 1 EACH PO DAILY, (Reported) Promethazine HCl 25 Mg Tablet, 25 MG PO Q6H PRN for NAUSEA/VOMITING, (Reported) Promethazine HCl 25 Mg Supp.rect, 25 MG RC Q4H Prescribed by: RUSSELL LOZOYA on 02/28/192151 Pyridoxine HCl 50 Mg Tablet, 50 MG PO BID Prescribed by: MUNIR RUFFIN on 03/03/191224 Scopolamine 1 Each Patch.td.3, 1 EACH TD Q72H Prescribed by: MUNIR RUFFIN on 03/03/19 122 Sucralfate 1 Gm/10 Ml Oral.susp, 1 GM PO QID AC AND HS Prescribed by: RUSSELL LOZOYA on 02/28/192151 Patient Home Medication List Home Medication List Reviewed: Yes OB - History Hx of Present Care: Yes Ultrasounds: Normal mid trimester US Obstetrical Complications: None Medical Complications: None Other Concerns: Hx of delivery at 34 weeks with previous Delivery History Hx Blood Disorders: Yes (ANEMIA) Patient Past Medical History n/a Social History/Family History HIV/AIDS: No Sexually Transmitted Disease: Yes (HSV) Alcohol Use: Denies Use Recreational Drug Use: Yes (Marijuana- few days ago ) 2nd Hand Smoke Exposure: Yes Immunizations Tetanus Booster (TDap): Unknown OB - Admission Exam Physical Exam Vitals: Vital Signs 09/16/19 09/16/19 14:00 15:30 Temp 35.9 Pulse 121 Resp 18 B/P (MAP) 152/92 (112) O2 Delivery Room Air HEENT: NCAT Heart: Rhythm Normal Abdomen: Gravid Extremities: Normal Reflexes: Normal Cervical Dilatation: 4cm Effacement: 75% Station: -1 Membranes: Ruptured Amniotic Fluid: Clear Heart Rate: 130's Accelerations: Accelerations Present Decelerations: No Decelerations Short Term Variability: Present Assisted Variability: Average (6-25) Contractions on Admission: < 5 Minutes Apart Intensity: Firm Labs Laboratory Tests Test 09/16/19 11:05 Range/Units White Blood Count 10.7 4.3-11.0 10^3/uL Red Blood Count 3.05 L 4.35-5.85 10^6/uL Hemoglobin 10.1 L 11.5-16.0 G/DL Hematocrit 29 L 35-52 % Mean Corpuscular Volume 96 80-99 FL Mean Corpuscular Hemoglobin 33 25-34 PG Mean Corpuscular Hemoglobin Concent 35 32-36 G/DL Red Cell Distribution Width 12.7 10.0-14.5 % Platelet Count 244 130-400 10^3/uL Mean Platelet Volume 10.1 7.4-10.4 FL Neutrophils (%) (Auto) 75 42-75 % Lymphocytes (%) (Auto) 18 12-44 % Monocytes (%) (Auto) 6 0-12 % Eosinophils (%) (Auto) 1 0-10 % Basophils (%) (Auto) 0 0-10 % Neutrophils # (Auto) 8.0 H 1.8-7.8 X 10^3 Lymphocytes # (Auto) 1.9 1.0-4.0 X 10^3 Monocytes # (Auto) 0.7 0.0-1.0 X 10^3 Eosinophils # (Auto) 0.1 0.0-0.3 10^3/uL Basophils # (Auto) 0.0 0.0-0.1 10^3/uL OB - Assessment/Plan/Diagnosis Assessment Assessment: labor, rupture of membranes Admission Dx 24 yo @ 35.5 weeks PTL SROM GBS unknown Hx of 34 week delivery Admission Status: Inpatient Order (span 2 midnights) Reason for Inpatient Admission: SROM and labor at 35.5 week Plan Plan: Expectant Management (Pitocin augmentation if necessary) HARSHA BANG DO Sep 16, 2019 17:04 POS
--- NOTE | 2019-09-16 17:56 | OB Labor & Delivery Record ---
L&D History Date of Service Date of Service: Sep 16, 2019 History Expected Date of Delivery: Oct 16, 2019 Gestational Age in Weeks: 35 Hx : 5 Hx Para: 2 Complications Events: Labor <37 wks Operative Indications (Cesarea: N/A-Vaginal Delivery Intrapartal Events: None L&D Stage1 Stage One Onset of Labor - Date: Sep 16, 2019 Monitors and Tracing Monitor Mode: External Heart Rate: 110 Monitor Accelerations: Uniform Monitor Decelerations: None Station: 0 Senior Care Variability: Average (6-10) Short Term Variability: Present Presentation: Vertex Vital Signs VS - Last 72 Hours, by Label POS 09/16/19 09/16/19 09/16/19 09/16/19 10:25 10:25 11:43 11:58 Temp 36.9 36.9 Pulse 69 69 75 78 Resp 18 18 18 18 B/P (MAP) 134/76 (95) 133/78 (96) 138/87 (104) Pulse Ox 98 O2 Delivery Room Air Room Air Room Air Room Air 09/16/19 09/16/19 09/16/19 09/16/19 12:17 12:27 12:45 12:59 Temp 37.0 Pulse 69 93 75 77 Resp 18 18 18 18 B/P (MAP) 132/86 (101) 132/67 (88) 154/79 (104) 130/86 (101) O2 Delivery Room Air Room Air Room Air Room Air 09/16/19 09/16/19 09/16/19 09/16/19 13:13 13:28 13:42 13:58 Temp 36.9 Pulse 67 75 90 127 Resp 18 18 18 18 B/P (MAP) 128/81 (97) 134/88 (103) 132/84 (100) 142/94 (110) O2 Delivery Room Air Room Air Room Air Room Air 09/16/19 09/16/19 09/16/19 09/16/19 14:00 14:30 14:34 14:45 Temp 35.9 Pulse 112 96 67 Resp 18 18 18 B/P (MAP) 152/95 (114) 143/87 (105) 146/80 (102) O2 Delivery Room Air Room Air Room Air 09/16/19 09/16/19 09/16/19 09/16/19 15:00 15:15 15:30 15:45 Temp 35.9 Pulse 78 110 121 121 Resp 18 18 18 18 B/P (MAP) 142/103 (116) 148/84 (105) 152/92 (112) 152/92 (112) O2 Delivery Room Air Room Air Room Air Room Air 09/16/19 09/16/19 09/16/19 16:00 16:15 16:30 Pulse 77 96 98 Resp 18 18 18 B/P (MAP) 152/92 (112) 151/99 (116) 134/86 (102) O2 Delivery Room Air Room Air Room Air Rupture of Membranes Spontaneous Ruture of Membrane: Yes Amniotic Membrane Rupture Time: 0800 Amniotic Membrane Fluid Desc.: Clear Vaginal Bleeding Description: Normal Show Progress/Notes Patient progressed without epidural using dilaudid for IV pain meds x 2 doses of 1mg throughout entire labor course. Pitocin augmentation used to max dose of 8 mu L&D Stage2 Stage Two Stage II Date: Sep 16, 2019 Monitors and Tracing Monitor Mode: External Heart Rate: 110 Monitor Accelerations: None Monitor Decelerations: Variable Inspector Firearms Variability: Average (6-10) Short Term Variability: Present Position: Right Occiput Anterior Presentation: Vertex Cord Descript/Complications Cord Vessel Description: 3 Vessels Delivery Type Infant Delivery Method: Spontaneous Vaginal Anterior Shoulder: Right Episiotomy/Perineal Laceration Laceraction(s)/Extensions: No Condition of Infant Delivery 1 minute Comment: 8 5 minute Comment: 9 Notes Live male infant weight 6lbs 15 oz Condition of Infant Condition of : Living Exam: No Observed Abnormalities Resuscitation Resuscitation: N/A - Spontaneous Resp L&D Stage3 Stage Three Stage III Date: Sep 16, 2019 Pictocin Pitocin Administration mu/min: 8 Pitocin ml/hr: 8 Pitocin Administration Comment: 30 mu wide open at delivery of placenta Placenta Delivery Placenta Delivery: Spontaneous Delivery Summary Summary Estimated blood loss (mL): 300 Attending at delivery: Harsha Bang DO Condition of Delivery Examined: Cervix Examined, Uterus Explored Post Hemorrhage: No Condition of Mother stable Condition of Infant (s) stable HARSHA BANG DO Sep 16, 2019 5:56 pm POS
--- NOTE | 2019-09-16 18:00 | NUR ---
FF u/0. minimal rubra. infant laying on mom's chest skin to skin. bonding well. denies needs.
--- NOTE | 2019-09-16 18:15 | NUR ---
ff u/0. minimal rubra. infant remains on mom's chest skin to skin. Mom asking about breasfeeding. encouraged mom to put by breast to root.
--- NOTE | 2019-09-16 18:30 | NUR ---
ff u/0. minimal rubra. pt continues to hold infant. states has not eaten yet. Pt denies needs.
--- NOTE | 2019-09-16 18:45 | NUR ---
ff u/0. minimal rubra. water refilled. will monitor.
[2019-09-16] MEDS: IBUPROFEN 600 MG (MOTRIN) TAB PO SCH (18:49)
--- NOTE | 2019-09-16 19:00 | NUR ---
ff u/0. minimal rubra. report given to next shift.
--- NOTE | 2019-09-16 19:20 | NUR ---
Pt states she is feeling nauseated and feels alot of bleeding. ff@u 3 4-5cm clots expressed with moderate rubra. Pads weighed with total ebl 350ml. Pitocin increased to 999mu/hr. notified of bleeding. New orders received.
[2019-09-16] MEDS ORDERED: CARBOPROST (HEMABATE) 250 MCG/ML AMP IM ONE ×2 (19:38→19:45)
--- NOTE | 2019-09-16 19:45 | NUR ---
Pt does not want meal tray that was delivered. Cold try given.
--- NOTE | 2019-09-16 20:17 | NUR ---
Emesis x1. states she is feeling better is going to try and eat cold tray. Will put instrument and control service person light when finished. s/o at bedside.
--- NOTE | 2019-09-16 20:30 | NUR ---
pt up to the bathroom. positive void. pericare completed. light/moderate rubra noted. pad and panties applied/gown changed. pt assisted to w'c and taken to room 311 pt orientated to room. info papers discussed. all questions answered.
[2019-09-16] MEDS ORDERED: BENZOCAINE/MENTHOL (DERMOPLAST) 56 ML CAN TP ONE (20:47)
[2019-09-16] MEDS: DOCUSATE SODIUM 100 MG (COLACE) CAP PO SCH (21:00)
[2019-09-17] VITALS: BP 113/64
[2019-09-17 04:16] VITALS: BP 113/64
[2019-09-17 06:40] LABS: BASOPHILS % (AUTO) 0 % (0-10); EOSINOPHILS % (AUTO) 0 % (0-10); HEMATOCRIT 24 % (35-52); HEMOGLOBIN 8.5 G/DL (11.5-16.0); LYMPHOCYTES # (AUTO) 1.7 X 10^3 (1.0-4.0); LYMPHOCYTES % (AUTO) 12 % (12-44); MEAN CORPUSCULAR HEMOGLOBIN 33 PG (25-34); MEAN CORPUSCULAR HGB CONC 35 G/DL (32-36); MEAN CORPUSCULAR VOLUME 96 FL (80-99); MEAN PLATELET VOLUME 10.2 FL (7.4-10.4); MONOCYTES # (AUTO) 0.8 X 10^3 (0.0-1.0); MONOCYTES % (AUTO) 6 % (0-12); NEUTROPHILS # (AUTO) 12.2 X 10^3 (1.8-7.8); NEUTROPHILS % (AUTO) 83 % (42-75); PLATELET COUNT 234 10^3/uL (130-400); RED CELL DISTRIBUTION WIDTH 12.4 % (10.0-14.5); WHITE BLOOD COUNT 14.8 10^3/uL (4.3-11.0)
[2019-09-17 07:54] VITALS: BP 108/62
--- NOTE | 2019-09-17 08:32 | Postpartum Progress Note ---
Note Note Day # 1 Subjective: Patient is without complaints. Ambulating, voiding. Tolerating a regular diet without nausea or vomiting. Normal lochia. Pain is well controlled with oral pain medications. Objective: Physical Exam: General - Alert and oriented, no apparent distress Abdomen - Soft, appropriately tender to palpation, non-distended, fundus firm at umbilicus Extremities - no edema, negative Norbert's bilaterally Assessment: PPD 1 NVD labor Acute blood loss anemia Plan: Routine care. Encourage breast feeding. Encourage ambulation. Ferrous sulfate supplementation. Plan for discharge tomorrow Vitals - Labs Vital Signs - I&O Vital Signs Date Time Temp Pulse Resp B/P (MAP) Pulse Ox O2 Delivery O2 Flow Rate FiO2 09/17/19 07:54 37.3 87 18 108/62 (77) 98 Room Air 09/17/19 04:16 37.0 92 18 113/64 (80) Room Air 09/17/19 00:00 92 18 113/64 (80) Room Air 09/16/19 20:00 106 18 149/78 (101) Room Air 09/16/19 19:45 74 18 121/76 (91) Room Air 09/16/19 19:30 68 18 133/79 (97) Room Air 09/16/19 19:15 75 18 133/91 (105) Room Air 09/16/19 19:00 93 18 144/65 (91) Room Air 09/16/19 18:28 36.3 100 18 113/50 (71) Room Air 09/16/19 18:12 97 18 130/83 (99) Room Air 09/16/19 17:57 36.9 90 18 133/75 (94) Room Air 09/16/19 17:45 104 18 160/103 (122) Room Air 09/16/19 17:30 77 18 150/96 (114) Room Air 09/16/19 17:15 108 18 134/92 (106) Room Air 09/16/19 17:00 105 18 142/94 (110) Room Air 09/16/19 16:45 93 18 142/94 (110) Room Air 09/16/19 16:30 98 18 134/86 (102) Room Air 09/16/19 16:15 96 18 151/99 (116) Room Air 09/16/19 16:00 77 18 152/92 (112) Room Air 09/16/19 15:45 35.9 121 18 152/92 (112) Room Air 09/16/19 15:30 121 18 152/92 (112) Room Air 09/16/19 15:15 110 18 148/84 (105) Room Air 09/16/19 15:00 78 18 142/103 (116) Room Air 09/16/19 14:45 67 18 146/80 (102) Room Air 09/16/19 14:34 96 18 143/87 (105) Room Air 09/16/19 14:30 112 18 152/95 (114) Room Air 09/16/19 14:00 35.9 09/16/19 13:58 127 18 142/94 (110) Room Air 09/16/19 13:42 36.9 90 18 132/84 (100) Room Air 09/16/19 13:28 75 18 134/88 (103) Room Air 09/16/19 13:13 67 18 128/81 (97) Room Air 09/16/19 12:59 77 18 130/86 (101) Room Air 09/16/19 12:45 37.0 75 18 154/79 (104) Room Air 09/16/19 12:27 93 18 132/67 (88) Room Air 09/16/19 12:17 69 18 132/86 (101) Room Air 09/16/19 11:58 78 18 138/87 (104) Room Air 09/16/19 11:43 75 18 133/78 (96) Room Air 09/16/19 10:25 36.9 69 18 98 Room Air 09/16/19 10:25 36.9 69 18 134/76 (95) Room Air I & O 09/17/19 07:00 Intake Total 500 ml Balance 500 ml Labs Laboratory Tests 09/16/19 11:05: White Blood Count 10.7, Red Blood Count 3.05L, Hemoglobin 10.1L, Hematocrit 29L, Mean Corpuscular Volume 96, Mean Corpuscular Hemoglobin 33, Mean Corpuscular Hemoglobin Concent 35, Red Cell Distribution Width 12.7, Platelet Count 244, Mean Platelet Volume 10.1, Neutrophils (%) (Auto) 75, Lymphocytes (%) (Auto) 18, Monocytes (%) (Auto) 6, Eosinophils (%) (Auto) 1, Basophils (%) (Auto) 0, Neutrophils # (Auto) 8.0H, Lymphocytes # (Auto) 1.9, Monocytes # (Auto) 0.7, Eosinophils # (Auto) 0.1, Basophils # (Auto) 0.0 09/17/19 06:25: White Blood Count 14.8H, Red Blood Count 2.55L, Hemoglobin 8.5L, Hematocrit 24L, Mean Corpuscular Volume 96, Mean Corpuscular Hemoglobin 33, Mean Corpuscular Hemoglobin Concent 35, Red Cell Distribution Width 12.4, Platelet Count 234, Mean Platelet Volume 10.2, Neutrophils (%) (Auto) 83H, Lymphocytes (%) (Auto) 12 , Monocytes (%) (Auto) 6, Eosinophils (%) (Auto) 0, Basophils (%) (Auto) 0, Neutrophils # (Auto) 12.2H, Lymphocytes # (Auto) 1.7, Monocytes # (Auto) 0.8, Eosinophils # (Auto) 0.0, Basophils # (Auto) 0.0 HARSHA BANG DO Sep 17, 2019 08:32 POS
[2019-09-17] MEDS ORDERED: DOCU100C37 PO (08:34)
[2019-09-17] MEDS ORDERED: IBUP-844 PO (08:34)
[2019-09-17] MEDS ORDERED: ACHD5005 PO (08:34)
[2019-09-17] MEDS ORDERED: FERR325T5 PO (08:34)
[2019-09-17] MEDS ORDERED: Benzocaine/Menthol TP (08:34)
--- NOTE | 2019-09-17 08:36 | Discharge Inst-Women's Service ---
Discharge Inst-Women's Serv Depart Medication/Instructions New, Converted or Re-Newed RX: RX on Chart Final Diagnosis PPD 2 NVD, Acute blood loss anemia Problems Reviewed?: Yes Consults/Follow Up Additional Follow Up: Yes Orders/Referrals Dr. Lamb in 6 weeks Activity Activity: Activity as Tolerated Driving Instructions: You May Drive NO SMOKING: NO SMOKING Nothing Inside Vagina: No Douching, No [place], No Tampons Diet Discharge Diet: No Restrictions Symptoms to Report to : Bleeding Excessive, Pain Increased, Fever Over 101 Degrees F, Vaginal Bleeding Increase, Questions/Concerns For Any Problems or Questions: Contact Your Physician HARSHA BANG DO Sep 17, 2019 08:36 POS
[2019-09-17] MEDS: IBUPROFEN 600 MG (MOTRIN) TAB PO SCH ×4 (09:41→21:53)
[2019-09-17] MEDS: DOCUSATE SODIUM 100 MG (COLACE) CAP PO SCH ×2 (09:42→21:53)
--- NOTE | 2019-09-17 09:42 | NUR ---
pt requests to take iron with lunch
[2019-09-17 11:53] VITALS: BP 111/59
[2019-09-17 15:57] VITALS: BP 113/72
[2019-09-17] MEDS: FERROUS SULF 325 MG (IRON) TAB PO SCH (16:01)
--- NOTE | 2019-09-17 20:45 | NUR ---
Pt going to shower. Shower set up. Pads given per request.
[2019-09-17] MEDS: PRENATAL VITAMIN 1 EA TAB PO SCH (21:54)
[2019-09-17 22:00] VITALS: BP 111/69
--- NOTE | 2019-09-17 22:00 | NUR ---
nb to pretty for car seat test Addendum: 09/17/19 at 2243 by EDNA BANDA RN wrong patient
--- NOTE | 2019-09-17 22:30 | NUR ---
car seat test started Addendum: 09/17/19 at 2243 by EDNA BANDA RN wrong patient
[2019-09-18] MEDS: IBUPROFEN 600 MG (MOTRIN) TAB PO SCH ×3 (00:10→14:09)
--- NOTE | 2019-09-18 07:38 | Postpartum Progress Note ---
Note Note Day # 2 Subjective: Patient is without complaints. Ambulating, voiding. Tolerating a regular diet without nausea or vomiting. Normal lochia. Pain is well controlled with oral pain medications. Objective: Physical Exam: General - Alert and oriented, no apparent distress Abdomen - Soft, appropriately tender to palpation, non-distended, fundus firm at umbilicus Extremities - no edema, negative Norbert's bilaterally Assessment: PPD 1 NVD Plan: Routine care. Encourage breast feeding. Encourage ambulation. Ferrous sulfate supplementation. Plan for discharge today Vitals - Labs Vital Signs - I&O Vital Signs Date Time Temp Pulse Resp B/P (MAP) Pulse Ox O2 Delivery O2 Flow Rate FiO2 09/17/19 22:00 37.3 74 18 111/69 (83) 98 Room Air 09/17/19 15:57 37.1 77 18 113/72 (86) 98 Room Air 09/17/19 11:53 37.5 85 18 111/59 (76) 97 Room Air 09/17/19 07:54 37.3 87 18 108/62 (77) 98 Room Air HARSHA BANG DO Sep 18, 2019 07:38 POS
--- NOTE | 2019-09-18 07:50 | NUR ---
DR. BANG TO PT'S BEDSIDE.
[2019-09-18 08:22] VITALS: BP 117/72
--- NOTE | 2019-09-18 08:25 | NUR ---
PT SITTING UP IN BED, EATING BREAKFAST. VS OBTAINED. PT DOESN'T WANT TO TAKE ANY OF THE SCHEDULED MEDS. INITIAL SHIFT ASSESSMENT COMPLETED; SEE INTERVENTION FOR FURTHER. S/O AT THE BEDSIDE. PT DENIES ANY NEEDS OR QUESTIONS AT THIS TIME. CALL LIGHT WITHIN REACH.
[2019-09-18] MEDS: PRENATAL VITAMIN 1 EA TAB PO SCH (08:58)
[2019-09-18] MEDS: DOCUSATE SODIUM 100 MG (COLACE) CAP PO SCH (08:58)
[2019-09-18] MEDS: FERROUS SULF 325 MG (IRON) TAB PO SCH (08:58)
--- NOTE | 2019-09-18 12:04 | NUR ---
DISCHARGE PAPERS PROVIDED AND REVIEWED WITH PT, PT VERBALIZES UNDERSTANDING AND DENIES ANY NEEDS OR QUESTIONS AT THIS TIME. PAPER SIGNED. FOLLOW UP APPT CARD AND RX'S ALSO PROVIDED AT THIS TIME.
--- NOTE | 2019-09-18 14:30 | NUR ---
PT DISCHARGED FROM -311 TO BOARDER MOM STATUS. PT IN STABLE CONDITION.
== END 2019-09-18 14:30 | disposition home or self-care (01) | DRG 806 ==
LOC: WSo 10:11 → LDRP 10:11 → WSo 10:40 → LDRP 10:40
PROVIDERS: ADMIT Obstetrics & Gynecology; ATTEND Obstetrics & Gynecology
PROC: 10E0XZZ Delivery of Products of Conception, External Approach (ICD-10-PCS; principal; 2019-09-16)
DX: O42.013 Preterm premature rupture of membranes, onset of labor within 24 hours of rupture, third trimester (principal); D62 Acute posthemorrhagic anemia; O90.81 Anemia of the puerperium; Z37.0 Single live birth; Z3A.35 35 weeks gestation of pregnancy; Z23 Encounter for immunization
CPT/HCPCS: 36415; 85025; 86850; 86900; 86901; 99212

== ENCOUNTER → 2020-01-26 | Outpatient (CLI) | payer MEDICAID ==
[~2020-01-26] MED LIST changes: +ACET-2715 PO; +ACHD5005 PO; +Benzocaine/Menthol TP; +DOCU100C37 PO; +FERR325T5 PO; +IBUP-844 PO; +MAGN1TAB PO; +PREN-37 PO; +PYRI50TA PO; -PYRI50TA13 PO
== END ==
LOC: LAB FS 11:54
PROVIDERS: ATTEND Family Medicine
DX: Z87.59 Personal history of other complications of pregnancy, childbirth and the puerperium (principal)
CPT/HCPCS: 36415; 84702

== ENCOUNTER → 2020-02-02 | Outpatient (CLI) | payer MEDICAID | LOC: LAB FS 09:32 | PROVIDERS: ATTEND Family Medicine | DX: Z87.59 Personal history of other complications of pregnancy, childbirth and the puerperium (principal) | CPT/HCPCS: 84702 ==

== ENCOUNTER → 2020-02-09 | Outpatient (CLI) | payer MEDICAID | LOC: LAB FS 13:03 | PROVIDERS: ATTEND Family Medicine | DX: Z33.2 Encounter for elective termination of pregnancy (principal) | CPT/HCPCS: 36415; 84702 ==

== ENCOUNTER → 2020-03-04 | Outpatient (CLI) | payer MEDICAID | LOC: LAB FS 12:22 | PROVIDERS: ATTEND Family Medicine | DX: Z01.89 Encounter for other specified special examinations (principal) | CPT/HCPCS: 36415; 84702 ==

== ENCOUNTER → 2020-03-05 | Outpatient (CLI) | payer MEDICAID | LOC: LABNPT 14:41 | PROVIDERS: ATTEND Family Medicine | DX: R10.2 Pelvic and perineal pain (principal) | CPT/HCPCS: 87491; 87591 ==

== ENCOUNTER → 2020-11-29 | Outpatient (CLI) | payer MEDICAID ==
[~2020-11-29] MED LIST changes: -ACET-2715 PO; +ACET-3075 PO
[2020-11-29 12:39] LABS: COLOR,URINE YELLOW
[2020-11-29 12:40] LABS: BACTERIA,URINE FEW /HPF; BILIRUBIN,URINE NEGATIVE (NEGATIVE); CLARITY,URINE SL CLOUDY; GLUCOSE, URINE (UA) NEGATIVE (NEGATIVE); KETONES,URINE NEGATIVE (NEGATIVE); LEUKOCYTE ESTERASE ,URINE TRACE (NEGATIVE); NITRITE,URINE NEGATIVE (NEGATIVE); PROTEIN,URINE NEGATIVE (NEGATIVE); WBC,URINE 50-100 /HPF
== END ==
LOC: LAB FS 11:41
PROVIDERS: ATTEND Family Medicine
DX: R30.9 Painful micturition, unspecified (principal)
CPT/HCPCS: 81000; 87077; 87088; 87186